=== PATIENT | male | born 1975 | race Two or more races ===

== ENCOUNTER 2018-11-29 11:22 | Emergency (ER) | payer SELFPAY ==
[2018-11-29 11:49] LABS: BASO % 2.5 % (0-2.0); EOS % 3.8 % (0-4.5); HEMOGLOBIN 13.8 GM/dL (11.7-16.9); LYMPH % 25.2 % (8-40); MCH 32.2 pg (25.7-33.7); MCHC 34.4 g/dl (32.0-35.9); MEAN CELL VOLUME 93.4 fl (80-96); MEAN PLT VOLUME 7.4 fl (7.5-11.1); MONO % 7.5 % (3.8-10.2); PLATELET COUNT 233 K/MM3 (134-434); RBC 4.28 M/mm3 (4.00-5.60); RDW 14.1 % (11.9-15.9); WHITE BLOOD COUNT 3.3 K/mm3 (4.0-10.0)
[2018-11-29] MEDS ORDERED: SODIUM CHLORIDE 1,000 ML IV STA (11:51)
--- NOTE | 2018-11-29 11:59 | PDOC ---
History of Present Illness <Shreyas Marie - Last Filed: 11/29/18 14:24> - General History Source: Patient, EMS Exam Limitations: No Limitations - History of Present Illness Initial Comments: Pt is a 43 yo M, with PMH of polysubstance abuse and Hep C with known fatty liver/elevated LFTs, who is presenting via EMS from the [facility] detox facility after being found down in the detox area parking lot. Per EMS, pt received naloxone x2 and became more responsive in route. Pt states he was presenting to detox facility, and "used a bag of heroin" while he was waiting to be admitted. Pt wishes to go back to detox after clearance, and has no current complaints. Pt denies any recent fevers/chills, headache, vision changes , chest pain, palpitations, SOB, nausea/vomiting, abdominal pain, urinary symptoms, diarrhea/constipation, or leg swelling. Pt was seen earlier this week at [facility] ED and had RUQ US 2/2 elevated LFTs , which showed fatty liver. Pt has never been hospitalized for withdrawal or seizures in the past. Allergies: PCN (rash/hives) PCP: None Social: Pt drinks 1/5th of vodka per day (last use 6 am today), suboxone daily ( not in a program, last use yesterday); no recent other illicit drug use (other than heroin today), but used IV drugs, cocaine, heroin in the past. Pt denies any recent travel or sick contacts. Surgical: no relevant history. Family: no relevant history. 11/29/18 11:54 11/29/18 11:59 <Marta Dominguez - Last Filed: 11/29/18 15:12> - General Chief Complaint: Overdose Stated Complaint: OVERDOSE Time Seen by Provider: 11/29/18 11:30 Past History <Shreyas Marie - Last Filed: 11/29/18 14:24> - Travel Traveled outside of the country in the last 30 days: No Close contact w/someone who was outside of country & ill: No - Past Medical History Anemia: No Asthma: No Cardiac Disorders: No CVA: No COPD: No Diabetes: No GI Disorders: No Disorders: No HTN: No Hypercholesterolemia: No Kidney Stones: No Seizures: No Thyroid Disease: No - Surgical History Abdominal Surgery: No Appendectomy: No Cardiac Surgery: No Cholecystectomy: No Lung Surgery: No Neurologic Surgery: No Orthopedic Surgery: No - Reproductive History Testicular Surgery: No - Psycho Social/Smoking Cessation Hx Smoking History: Never smoked Have you smoked in the past 12 months: No Number of Cigarettes Smoked Daily: 20 Information on smoking cessation initiated: No 'Breaking Loose' booklet given: 07/22/15 Hx Alcohol Use: Yes Drug/Substance Use Hx: Yes Substance Use Type: Alcohol, Heroin Hx Substance Use Treatment: Yes ([facility]) <Marta Dominguez - Last Filed: 11/29/18 15:12> - Past Medical History Allergies/Adverse Reactions: Allergies Allergy/AdvReac Type Severity Reaction Status Date / Time Penicillins Allergy Hives Verified 11/29/18 11:40 Home Medications: Ambulatory Orders hydrOXYzine PAMOATE [Vistaril -] 25 mg PO TID PRN 07/22/15 Review of Systems - Review of Systems Able to Perform ROS?: Yes Is the patient limited French proficient: No Constitutional: Yes: Weight Stable. No: Chills, Fever, Loss of Appetite, Malaise, Weakness HEENTM: No: Recent change in vision, Nose Congestion, Throat Pain, Throat Swelling, Difficulty Swallowing Respiratory: No: Cough, Orthopnea, Shortness of Breath Cardiac (ROS): Yes: See HPI, Syncope. No: Chest Pain, Edema, Irregular Heart Rate, Lightheadedness, Palpitations, Chest Tightness ABD/GI: No: Constipated, Diarrhea, Nausea, Poor Appetite, Poor Fluid Intake, Vomiting : No: Burning, Dysuria, Frequency, Hematuria, Pain, Urgency Musculoskeletal: No: Back Pain, Muscle Pain, Muscle Weakness Integumentary: No: Rash Neurological: Yes: Other (LOC 2/2 overdose). No: Headache, Numbness, Weakness, Unsteady Gait, Dizziness Psychiatric: No: Sleep Pattern Change, Change in Appetite Endocrine: No: Increased Urine, Change in Weight Hematologic/Lymphatic: No: Anemia, Blood Clots, Easy Bleeding, Easy Bruising All Other Systems: Reviewed and Negative <Marta Dominguez - Last Filed: 11/29/18 15:12> *Physical Exam - Vital Signs Last Vital Signs Temp Pulse Resp BP Pulse Ox 97.8 F 78 18 115/78 96 11/29/18 13:33 11/29/18 13:33 11/29/18 13:33 11/29/18 13:33 11/29/18 13:33 <Shreyas Marie - Last Filed: 11/29/18 14:24> - Vital Signs Last Vital Signs Temp Pulse Resp BP Pulse Ox 97.6 F 72 18 129/82 100 11/29/18 11:36 11/29/18 11:36 11/29/18 11:36 11/29/18 11:36 11/29/18 11:36 - Physical Exam Comments: Vitals stable, pt afebrile. Pt in NAD, lying on bed comfortably. Normal body habitus. Pt alert and oriented x3. Answering questions appropriately in full sentences. live in housekeeper nanny generally intact, muscular strength and sensation intact. No midline spinal tenderness, step-offs, or crepitus. Head normocephalic, atraumatic. Eyes PERRLA, 3 mm. EOMI. Oropharynx without erythema or exudates, no LAD b/l. No nasal congestion, hearing intact. Clear heart sounds, S1/S2, no JVD, b/l pedal edema, or heart murmur. Clear lung sounds, no respiratory distress, wheezes, crackles, or accessory muscle use. No abdominal or CVA tenderness to palpation, no rebound, no guarding. Abdomen soft, non-distended, and with normoactive bowel sounds. Skin without jaundice or rash. Extensive tattoos on arms and back. 11/29/18 12:01 <Marta Dominguez - Last Filed: 11/29/18 15:12> ED Treatment Course - LABORATORY CBC & Chemistry Diagram: 11/29/18 11:40 11/29/18 11:40 - ADDITIONAL ORDERS Additional order review: Laboratory Results 11/29/18 11/29/18 11/29/18 12:09 11:52 11:52 Sodium Potassium Chloride Carbon Dioxide Anion Gap BUN Creatinine Est GFR (CKD-EPI)AfAm Est GFR (CKD-EPI)NonAf POC Glucometer 92 Random Glucose Calcium Total Bilirubin AST ALT Alkaline Phosphatase Creatine Kinase Creatine Kinase Index CK-MB (CK-2) Troponin I Total Protein Albumin Urine Color Yellow Urine Appearance Clear Urine pH 6.0 Ur Specific [place] 1.007 L Urine Protein 1+ H Urine Glucose (UA) Negative Urine Ketones Negative Urine Blood Negative Urine Nitrite Negative Urine Bilirubin Negative Urine Urobilinogen 0.2 Ur Leukocyte Esterase Negative Opiates Screen Negative Methadone Screen Negative Barbiturate Screen Negative Phencyclidine Screen Negative Ur Amphetamines Screen Negative MDMA (Ecstasy) Screen Negative Benzodiazepines Screen Negative Cocaine Screen Negative U Marijuana (THC) Screen Negative 11/29/18 11/29/18 11:40 11:40 Sodium 141 Potassium 3.6 Chloride 105 Carbon Dioxide 25 Anion Gap 12 BUN 12.9 Creatinine 0.9 Est GFR (CKD-EPI)AfAm 122.52 Est GFR (CKD-EPI)NonAf 105.71 POC Glucometer Random Glucose 95 Calcium 8.7 Total Bilirubin 0.9 AST 207 H ALT 443 H Alkaline Phosphatase 111 Creatine Kinase 573 H Creatine Kinase Index 0.8 CK-MB (CK-2) 4.6 H Troponin I < 0.02 Total Protein 6.9 Albumin 3.9 Urine Color Urine Appearance Urine pH Ur Specific [place] Urine Protein Urine Glucose (UA) Urine Ketones Urine Blood Urine Nitrite Urine Bilirubin Urine Urobilinogen Ur Leukocyte Esterase Opiates Screen Methadone Screen Barbiturate Screen Phencyclidine Screen Ur Amphetamines Screen MDMA (Ecstasy) Screen Benzodiazepines Screen Cocaine Screen U Marijuana (THC) Screen 11/29/18 11/29/18 12:09 11:40 RBC 4.28 MCV 93.4 MCHC 34.4 RDW 14.1 MPV 7.4 L D Neutrophils % 61.0 Lymphocytes % 25.2 Monocytes % 7.5 Eosinophils % 3.8 Basophils % 2.5 H POC Glucometer 92 - Medications Given in the ED: ED Medications Discontinued Medications Generic Name Dose Route Start Last Admin Trade Name Freq PRN Reason Stop Dose Admin Sodium Chloride 1,000 mls @ 1,000 mls/hr 11/29/18 11:51 11/29/18 12:05 Normal Saline - IV 11/29/18 12:50 1,000 mls/hr ASDIR STA Administration <Shreyas Marie - Last Filed: 11/29/18 14:24> - LABORATORY CBC & Chemistry Diagram: 11/29/18 11:40 11/29/18 11:40 - ADDITIONAL ORDERS Additional order review: 11/29/18 11:40 RBC 4.28 MCV 93.4 MCHC 34.4 RDW 14.1 MPV 7.4 L D Neutrophils % 61.0 Lymphocytes % 25.2 Monocytes % 7.5 Eosinophils % 3.8 Basophils % 2.5 H <Marta Dominguez - Last Filed: 11/29/18 15:12> Medical Decision Making - Medical Decision Making Pt was seen at bedside, also will be seen by attending Dr. Marie. Pt presenting via EMS after overdose from heroin in detox center parking lot. Pt now mentating at baseline, answering appropriately in full sentences, no signs of respiratory depression or distress. Ordered pre-admission labs, urine toxicology screen. Provided 1 L IV NS for improvement of hydration. Will continue to reassess pt and monitor for symptomatic improvement and further need for naloxone. 11/29/18 12:03 CBC: WBC 3.1 CMP: elevated LFTs (known to pt) Trop <.02, with elevated CKMB -- provided IVF Urine tox screen negative (suboxone and heroin often does not test positive). Called [facility] for admission status. 11/29/18 13:31 UA negative for infection. Pending [facility] dispo. 11/29/18 13:48 Pt discharged with [facility] f/u, bed available. Strict return precautions provided with pt understanding. 11/29/18 15:12 <Marta Dominguez - Last Filed: 11/29/18 15:12> Discharge - Discharge Information Problems reviewed: Yes - Admission No <Shreyas Marie - Last Filed: 11/29/18 14:24> - Discharge Information Problems reviewed: Yes - Admission No <Marta Dominguez - Last Filed: 11/29/18 15:12> - Discharge Information Clinical Impression/Diagnosis: Alcohol dependence with uncomplicated withdrawal Condition: Improved Disposition: HOME - Patient Discharge Instructions Patient Printed Discharge Instructions: Drug and Alcohol Withdrawal Additional Instructions: Proceed directly to [facility] for withdrawal
[2018-11-29 12:02] VITALS: BMI 33.6
[2018-11-29 12:27] LABS: ALBUMIN 3.9 g/dl (3.4-5.0); BILIRUBIN,TOTAL 0.9 mg/dL (0.2-1); BLOOD UREA NITROGEN 12.9 mg/dL (7-18); CALCIUM 8.7 mg/dL (8.5-10.1); CREATININE 0.9 mg/dL (0.55-1.3); POTASSIUM 3.6 mmol/L (3.5-5.1); TOT PROT 6.9 g/dl (6.4-8.2)
[2018-11-29 13:23] LABS: COCAINE, UR NEGATIVE ng/ml (CUTOFF=300); METHADONE, UR NEGATIVE ng/ml (CUTOFF=300); OPIATES, URI NEGATIVE ng/ml (CUTOFF=300); PHENCYCLIDINE,URINE NEGATIVE ng/ml (CUTOFF=25); URINE AMPHETAMINES NEGATIVE ng/ml (CUTOFF=500); URINE BARBITURATES NEGATIVE ng/ml (CUTOFF=200); URINE BENZODIAZEPINES NEGATIVE ng/ml (CUTOFF=200)
[2018-11-29 13:33] LABS: URINE APPEARANCE CLEAR; URINE BILIRUBIN NEGATIVE (NEGATIVE); URINE COLOR YELLOW; URINE GLUCOSE (UA) NEGATIVE (NEGATIVE); URINE KETONE NEGATIVE (NEGATIVE)
[2018-11-29 13:34] VITALS: BP 115/78; PULSE 78; TEMP 97.8
[2018-11-29 13:34] LABS: URINE LEUK ESTERASE NEGATIVE (NEGATIVE); URINE NITRITE NEGATIVE (NEGATIVE); URINE PROTEIN 1+ (NEGATIVE); URINE UROBILINOGEN 0.2 mg/dL (0.2-1.0)
--- NOTE | 2018-11-29 14:25 | PDOC ---
Attending Attestation - Resident Resident Name: Marta Dominguez - ED Attending Attestation I have performed the following: I have examined & evaluated the patient, The case was reviewed & discussed with the resident, I agree w/resident's findings & plan, Exceptions are as noted - HPI HPI: 11/29/18 18:38 43 years old with heroin overdose given Narcan by EMS now with stable vital signs - Physicial Exam PE: 11/29/18 18:38 Vitals: Triage Vital signs reviewed General Appearance: no acute distress, well nourished well developed, Head: Atraumatic, Eyes: Pupils equal reactive round, extraocular movement intact Cardiac: Regular rate and rhythym, no murmurs, no rubs, no gallops, Lungs: Clear to auscultation bilateral, good air movement bilaterally, Abdomen: Soft, non distended, normal bowel sounds, non tender to palpation Extremities: Full range of motion to all extremities, no cyanosis, clubbing, or edema Skin: Warm and dry, no rashes or lesions, no rash, no petechiae Neuro: AOX3; Cranial Nerves 2-12 grossly intact, Strength intact to all extremities, Sensation intact to all extremities,gait normal Psych: normal mood, normal affect - Medical Decision Making 11/29/18 18:40 43 years old was attempting to check into detox for alcohol detox was presented with the inability to buy heroin and bought a bag sniffed it subsequently was found unresponsive by EMS on the street Narcan was given in the field good response patient was observed in the emergency department for 3 hours. Patient very remorseful. CIWA score of 10. Case discussed with [facility] care will discharge to [facility] for detox and further management. Medically clear for discharge.
== END 2018-11-29 14:47 | disposition home or self-care (01) ==
LOC: JER 11:22
PROC: 3E0337Z Introduction of Electrolytic and Water Balance Substance into Peripheral Vein, Percutaneous Approach (ICD-10-PCS; principal; 2018-11-29)
DX: T40.1X1A Poisoning by heroin, accidental (unintentional), initial encounter (principal); F10.230 Alcohol dependence with withdrawal, uncomplicated; F11.20 Opioid dependence, uncomplicated; R94.5 Abnormal results of liver function studies; K76.0 Fatty (change of) liver, not elsewhere classified; Z88.0 Allergy status to penicillin; Y92.481 Parking lot as the place of occurrence of the external cause
CPT/HCPCS: 36415; 71045-TC-FY; 80053; 80307; 81003; 82550; 82553; 82962; 84484; 85025; 99285-25; J7030

== ENCOUNTER 2018-11-29 16:30 | Inpatient (IN) | payer SELFPAY ==
--- NOTE | 2018-11-29 11:31 | HP ---
Screened but not Admitted - Documentation of Visit Screened but not Admitted: Yes Level of Care Recommended at this Time: ER Evaluation/Care Additional Information/Explanation: responded to rapid respond in parking lot in [facility],patient was found. slumped over the scaffolding,patientis has. labour breathing,unresponsive,pupil costricted. patient was laid on the ground, activated call to 911 immediately. intranasal narcan 4 mg given 10.47 immediately. ambule bag with oxygen apply immediaely by medical provider. narcan 0.4 mg im given at 10.49. narcan 0.4 mg given at 10.50. narcan intranasal 4 mgs given at 10.51. patient responded ,opening the eys,spontanous breathing. bp 160/99,p90,r20,. oxygen sat 90%. medics arrival at 10.54. patient was transported to [facility] by medics. reported given to Dr.Anthony Patterson at [facility]
[2018-11-29 16:55] VITALS: BMI 34.0
--- NOTE | 2018-11-29 18:40 | HP ---
COWS - Scale Resting Pulse: 1= [place] 81-100 Sweatin=Flushed/Facial Moisture Restless Observation: 1= Difficult to Sit Still Pupil Size: 1= Pupils >than Normal (Pupils = 3 mm) Bone or Joint Aches: 1= Mild Discomfort (r/t withdrawal) Runny Nose/ Eye Tearin= Nasal Congestion GI Upset > 30mins: 0= None Tremor Observation: 2= Slight Tremor Visible Yawning Observation: 0= None Anxiety or Irritability: 1=Feels Anxious/Irritable Goose Flesh Skin: 0=Smooth Skin COWS Score: 10 CIWA Score Nausea/Vomitin-No Nausea/No Vomiting (TATO: 0.055) Muscle Tremors: 4-Moderate,w/Arms Extend Anxiety: 1-Mildly Anxious Agitation: 3 Paroxysmal Sweats: 3 (Increased facial mositure) Orientation: 0-Oriented Tacttile Disturbances: 0-None Auditory Disturbances: 0-None Visual Disturbances: 0-None Headache: 0-None Present CIWA-Ar Total Score: 11 - Admission Criteria OAS Guidelines: Admission for Medically Managed Detox: Requires at least one of the followin. CIWA greater than 12 2. Seizures within the past 24 hours 3. Delirium tremens within the past 24 hours 4. Hallucinations within the past 24 hours 5. Acute intervention needed for co occurring medical disorder 6. Acute intervention needed for co occurring psychiatric disorder 7. Severe withdrawal that cannot be handled at a lower level of care (continued vomiting, continued diarrhea, abnormal vital signs) requiring intravenous medication and/or fluids 8. Patient presents the following: Acute intervention needed for co-occurring med or psych disorder (Patient treated in ED for overdose earlier today) Admission Criteria Met: Admission criteria met Admission ROS [facility] Chief Complaint: Here for alcohol and suboxone taper. Allergies/Adverse Reactions: Allergies Allergy/AdvReac Type Severity Reaction Status Date / Time Penicillins Allergy Hives Verified 11/29/18 16:49 History of Present Illness: 43 yo patient seen earlier today at [facility] w/ symptoms of an overdose and was administered several doses of Narcan before reversal. Patient now returns from [facility] ED after being seen post overdose. Patient states alcohol has been his primary problem and was coming to [facility] for detox. Denies prior hx overdose or seizures. Hx: blackouts - last about 1-2 years ago. Utox: FEN/BZO/BUP TATO: 0.109 earlier. Now = 0.055 Alcohol use began at age 16. Currently drinks about 1/5 liquor/day x last 3-4 months. Illicit Suboxone use began about 5 years ago. Current use 4-8 mg daily x 2 months. Heroin use began at age 21. States last used heroin 2 years ago except for the one bag, which he thought was heroin, just outside [facility] parking lot earlier today. Nicotine use began at age 20. Currently smokes 1/2 to 1 PPD. PMHx: Denies significant hx. MHHx: Some anxiety, insomnia. Denies thoughts of harming self or others. Does not see a MH Provider SHx; Domiciles. Employed. Search Terms: Chris Wu, 1975 Search Date: 11/29/2018 07:08:18 PM The Drug Utilization Report below displays all of the controlled substance prescriptions, if any, that your patient has filled in the last twelve months. The information displayed on this report is compiled from pharmacy submissions to the Department, and accurately reflects the information as submitted by the pharmacies. This report was requested by: Alma Delia Grady | Reference #: [id number] There are no results for the search terms that you entered. Search Terms: Chris Wu, 1975 Search Date: 11/29/2018 07:08:47 PM States Searched: [place], [place], [place], [place], [place], [place], [place], [place] The Drug Utilization Report below displays the controlled substance prescriptions, if any, that were dispensed in the indicated state(s). The information displayed on this report is compiled from requests submitted to other states' PMPs, and accurately reflects the information as returned by them. Blank [place] indicate data not provided by other state. This report was requested by: Alma Delia Grady | Reference #: [id number] There are no results for the search terms that you entered. [facility] HPI, PE, and labs on 11/29/18, reviewed and agree w/ assessment/ findings, as shown below: History Source: [facility] History of Present Illness Initial Comments: Pt is a 43 yo M, with PMH of polysubstance abuse and Hep C with known fatty liver/elevated LFTs, who is presenting via EMS from the [facility] detox facility after being found down in the detox area parking lot. Per EMS, pt received naloxone x2 and became more responsive in route. Pt states he was presenting to detox facility, and "used a bag of heroin" while he was waiting to be admitted. Pt wishes to go back to detox after clearance, and has no current complaints. Pt denies any recent fevers/chills, headache, vision changes , chest pain, palpitations, SOB, nausea/vomiting, abdominal pain, urinary symptoms, diarrhea/constipation, or leg swelling. Pt was seen earlier this week at [facility] ED and had RUQ US 2/2 elevated LFTs , which showed fatty liver. Pt has never been hospitalized for withdrawal or seizures in the past. Allergies: PCN (rash/hives) PCP: None Social: Pt drinks 1/5th of vodka per day (last use 6 am today), suboxone daily ( not in a program, last use yesterday); no recent other illicit drug use (other than heroin today), but used IV drugs, cocaine, heroin in the past. Pt denies any recent travel or sick contacts. Surgical: no relevant history. Family: no relevant history. - Review of Systems Able to Perform ROS?: Yes Is the patient limited French proficient: No Constitutional: Yes: Weight Stable. No: Chills, Fever, Loss of Appetite, Malaise, Weakness HEENTM: No: Recent change in vision, Nose Congestion, Throat Pain, Throat Swelling, Difficulty Swallowing Respiratory: No: Cough, Orthopnea, Shortness of Breath Cardiac (ROS): Yes: See HPI, Syncope. No: Chest Pain, Edema, Irregular Heart Rate, Lightheadedness, Palpitations, Chest Tightness ABD/GI: No: Constipated, Diarrhea, Nausea, Poor Appetite, Poor Fluid Intake, Vomiting : No: Burning, Dysuria, Frequency, Hematuria, Pain, Urgency Musculoskeletal: No: Back Pain, Muscle Pain, Muscle Weakness Integumentary: No: Rash Neurological: Yes: Other (LOC 2/2 overdose). No: Headache, Numbness, Weakness, Unsteady Gait, Dizziness Psychiatric: No: Sleep Pattern Change, Change in Appetite Endocrine: No: Increased Urine, Change in Weight Hematologic/Lymphatic: No: Anemia, Blood Clots, Easy Bleeding, Easy Bruising All Other Systems: Reviewed and Negative <Marta Dominguez - Last Filed: 11/29/18 15:12> Physical Exam Comments: Vitals stable, pt afebrile. Pt in NAD, lying on bed comfortably. Normal body habitus. Pt alert and oriented x3. Answering questions appropriately in full sentences. horse trainer generally intact, muscular strength and sensation intact. No midline spinal tenderness, step-offs, or crepitus. Head normocephalic, atraumatic. Eyes PERRLA, 3 mm. EOMI. Oropharynx without erythema or exudates, no LAD b/l. No nasal congestion, hearing intact. Clear heart sounds, S1/S2, no JVD, b/l pedal edema, or heart murmur. Clear lung sounds, no respiratory distress, wheezes, crackles, or accessory muscle use. No abdominal or CVA tenderness to palpation, no rebound, no guarding. Abdomen soft, non-distended, and with normoactive bowel sounds. Skin without jaundice or rash. Extensive tattoos on arms and back. 11/29/18 12:01 <Marta Dominguez - Last Filed: 11/29/18 15:12> Exam Limitations: No Limitations - Ebola screening Have you traveled outside of the country in the last 21 days: No Have you had contact with anyone from an Ebola affected area: No Have you been sick,other than usual withdrawal symptoms: Yes (Overdose today, otherwise no. ) Do you have a fever: No - Review of Systems Constitutional: Diaphoresis, Changes in sleep (Difficulty staying asleep) EENT: reports: See HPI, Nose Congestion Respiratory: reports: No Symptoms reported Cardiac: reports: No Symptoms Reported, See HPI GI: reports: See HPI : reports: See HPI Musculoskeletal: reports: See HPI Integumentary: reports: See HPI Neuro: reports: No Symptoms reported Endocrine: reports: See HPI Hematology: reports: See HPI Psychiatric: reports: Orientated x3, Anxious Patient History - Patient Medical History Hx Anemia: No Hx Asthma: No Hx Chronic Obstructive Pulmonary Disease (COPD): No Hx Cardiac Disorders: No Hx Hypertension: No Hx Hypercholesterolemia: No HX Cerebrovascular Accident: No Hx Seizures: No Hx Diabetes: No Hx Gastrointestinal Disorders: No Hx Genitourinary Disorders: No Hx Sexually Transmitted Disorders: No Hx Renal Disease (ESRD): No Hx Thyroid Disease: No Hx Human Immunodeficiency Virus (HIV): No (NEGATIVE HX) Hx Hepatitis C: Yes (since 2003-TREATED 2005-UNDETECTABLE) Hx Depression: Yes (AND ANXIETY DISORDER;NOT CURRENTLY ON MED SINC 8 MONTHS ) Hx Suicide Attempt: No (DENIES) Hx Schizophrenia: No - Patient Surgical History Past Surgical History: No Hx Neurologic Surgery: No Hx Cataract Extraction: No Hx Cardiac Surgery: No Hx Lung Surgery: No Hx Breast Surgery: No Hx Breast Biopsy: No Hx Abdominal Surgery: No Hx Appendectomy: No Hx Cholecystectomy: No Hx Genitourinary Surgery: No Hx Section: No Hx Orthopedic Surgery: No - PPD History Previous Implant?: Yes (States 2018) Documented Results: Negative w/proof Implanted On Prior [facility] Admission?: Yes Date: 07/24/15 PPD to be Administered?: Yes - Smoking Cessation Smoking history: Current every day smoker Have you smoked in the past 12 months: Yes Aproximately how many cigarettes per day: 20 Hx Chewing Tobacco Use: No Initiated information on smoking cessation: Yes 'Breaking Loose' booklet given: 11/29/18 - Substance & Tx. History Hx Alcohol Use: Yes Hx Substance Use: Yes Substance Use Type: Alcohol, Cocaine, Heroin, Opiates (Suboxone) Hx Substance Use Treatment: Yes (detox, rehab, (no Suboxone or MMTP programs)) - Substances abused Alcohol Substance route: Oral Frequency: Daily Amount used: 1/5 th of vodka Age of first use: 16 Date of last use: 11/29/18 Buprenorphine Substance route: Oral Frequency: Daily Amount used: 4-8mg/day Age of first use: 38 Date of last use: 11/28/18 Admission Physical Exam BHS - Vital Signs Vital Signs: Vital Signs - 24 hr 11/29/18 16:52 Temperature 97.6 F Pulse Rate 86 Respiratory 16 Rate Blood Pressure 160/97 - Physical General Appearance: Yes: Nourished, Mild Distress, Tremorous, Sweating, Anxious HEENTM: Yes: Normocephalic, Normal Voice, MARÍA ELENA (Pupils = 3 mm), Pharynx Normal Respiratory: Yes: Lungs Clear (Pulse Ox = 96 %), Normal Breath Sounds, No Respiratory Distress Cardiology: Yes: Regular Rhythm, Regular Rate, S1, S2 - Diagnostic (1) Opioid dependence with withdrawal Current Visit: Yes Status: Acute (2) History of drug overdose Current Visit: Yes Status: Acute Comment: 11/29/18 (3) Alcohol dependence with uncomplicated withdrawal Current Visit: Yes Status: Acute (4) Nicotine dependence Current Visit: Yes Status: Chronic Qualifiers: Nicotine product type: cigarettes Substance use status: uncomplicated Qualified Code(s): F17.210 - Nicotine dependence, cigarettes, uncomplicated (5) Obesity (BMI 30-39.9) Current Visit: Yes Status: Chronic Cleared for Admission S - Detox or Rehab [facility] Level of Care: Medically Managed Detox Regimen/Protocol: Librium, Suboxone Claeared for Rehab Admission: No Breathalyzer - Breathalyzer Breathalyzer: 0.109 Urine Drug Screen - Test Device Lot number: [id number] Expiration date: 08/02/20 - Control Is test valid?: Yes - Results Drug screen NEGATIVE: No Urine drug screen results: FEN-Fentanyl, BZO-Benzodiazepines, BUP-Suboxone Inpatient Rehab Admission - Rehab Decision to Admit Inpatient rehab admission?: No
[2018-11-29] MEDS ORDERED: chlordiazePOXIDE HCL 25 MG CAPSULE PO ONE (19:27)
[2018-11-29] MEDS ORDERED: MAGNESIUM CITRATE 300 ML BOTTLE PO PRN (19:27)
[2018-11-29] MEDS ORDERED: MAG HYDROX/AL HYDROX/SIMETH 30 ML UNIT-DOSE CUP PO PRN (19:27)
[2018-11-29] MEDS ORDERED: chlordiazePOXIDE HCL 25 MG CAPSULE PO PRN (19:27)
[2018-11-29] MEDS ORDERED: MENTHOL/PHENOL 1 EACH UD MM PRN (19:27)
[2018-11-29] MEDS ORDERED: ACETAMINOPHEN 325 MG TABLET (FP) PO PRN ×2 (19:27)
[2018-11-29] MEDS ORDERED: MAGNESIUM HYDROX 2400MG/30ML ORAL SUSPENSION 30 ML CUP PO PRN (19:27)
[2018-11-29] MEDS ORDERED: BISMUTH SUBSALICYLATE 524 MG/30 ML UD PO PRN (19:27)
[2018-11-29] MEDS ORDERED: METHOCARBAMOL 500 MG TABLET PO PRN (19:27)
[2018-11-29] MEDS: chlordiazePOXIDE HCL 25 MG CAPSULE PO SCH (22:05)
[2018-11-29] MEDS: MELATONIN 5 MG TABLETS PO PRN (22:06)
[2018-11-29] MEDS: THIAMINE HCL 100 MG TABLET (FP) PO SCH (22:06)
[2018-11-29] MEDS: BUPRENORPHINE/NALOXONE 4 MG/1 MG FILM PACKET SL SCH (22:06)
[2018-11-30] MEDS: chlordiazePOXIDE HCL 25 MG CAPSULE PO SCH ×4 (05:26→22:06)
[2018-11-30] MEDS: NICOTINE 21 MG/24 HOURS TOPICAL PATCH TD SCH (10:20)
[2018-11-30] MEDS: PRENATAL VITAMINS W/ FOLIC ACID TABLET (FP) PO SCH (10:20)
[2018-11-30] MEDS: BUPRENORPHINE/NALOXONE 4 MG/1 MG FILM PACKET SL SCH ×2 (10:20→21:45)
--- NOTE | 2018-11-30 10:39 | PN ---
S CIWA - CIWA Score Nausea/Vomitin-No Nausea/No Vomiting Muscle Tremors: 2 Anxiety: 3 Agitation: 0-Normal Activity Paroxysmal Sweats: 3 Orientation: 0-Oriented Tacttile Disturbances: 0-None Auditory Disturbances: 0-None Visual Disturbances: 0-None Headache: 2-Mild CIWA-Ar Total Score: 10 BHS COWS - Scale Resting Pulse: 0= [place] 80 or Below Sweatin= Chills/Flushing Restless Observation: 1= Difficult to Sit Still Pupil Size: 0= Normal to Room Light Bone or Joint Aches: 2= Severe Diffuse Aches Runny Nose/ Eye Tearin= None GI Upset > 30mins: 0= None Tremor Observation of Outstretched Hands: 2= Slight Tremor Visible Yawning Observation: 1= 1-2x During Session Anxiety or Irritability: 2=Irritable/Anxious Goose Flesh Skin: 0=Smooth Skin COWS Score: 9 BHS Progress Note (SOAP) Subjective: c/o anxiety, irritability, sweats, and headache. Objective: 11/30/18 10:38 Vital Signs 11/30/18 11/30/18 11/30/18 03:30 07:03 09:41 Temperature 97.3 F L 97.9 F Pulse Rate 60 69 Respiratory 18 18 18 Rate Blood Pressure 113/77 127/82 Assessment: 11/30/18 10:38 AOX3, in no acute respiratory distress. Full ROM, ambulating in the unit. Withdrawal symptoms. Plan: continue detox.
[2018-11-30] MEDS: NICOTINE POLACRILEX 2 MG GUM BUC PRN (12:19)
[2018-11-30] MEDS: IBUPROFEN 400 MG TABLET (FP) PO PRN (17:02)
[2018-11-30] MEDS: THIAMINE HCL 100 MG TABLET (FP) PO SCH (21:45)
[2018-11-30] MEDS: MELATONIN 5 MG TABLETS PO PRN (21:45)
[2018-12-01] MEDS: chlordiazePOXIDE HCL 25 MG CAPSULE PO SCH ×4 (06:10→22:10)
[2018-12-01] MEDS: PRENATAL VITAMINS W/ FOLIC ACID TABLET (FP) PO SCH (10:16)
[2018-12-01] MEDS: NICOTINE 21 MG/24 HOURS TOPICAL PATCH TD SCH (10:16)
[2018-12-01] MEDS: BUPRENORPHINE/NALOXONE 4 MG/1 MG FILM PACKET SL SCH (10:16)
--- NOTE | 2018-12-01 16:52 | PN ---
[facility] CIWA - CIWA Score Nausea/Vomitin-No Nausea/No Vomiting Muscle Tremors: 3 Anxiety: 4-Mod. Anxious/Guarded Agitation: 3 Paroxysmal Sweats: 3 Orientation: 0-Oriented Tacttile Disturbances: 0-None Auditory Disturbances: 0-None Visual Disturbances: 0-None Headache: 0-None Present CIWA-Ar Total Score: 13 BHS COWS - Scale Resting Pulse: 1= [place] 81-100 Sweatin= Chills/Flushing Restless Observation: 1= Difficult to Sit Still Pupil Size: 0= Normal to Room Light Bone or Joint Aches: 1= Mild Discomfort Runny Nose/ Eye Tearin= Runny Nose/Eyes GI Upset > 30mins: 2= Nausea/Diarrhea Tremor Observation of Outstretched Hands: 2= Slight Tremor Visible Yawning Observation: 0= None Anxiety or Irritability: 2=Irritable/Anxious Goose Flesh Skin: 0=Smooth Skin COWS Score: 12 BHS Progress Note (SOAP) Subjective: Interrupted sleep, anxious Objective: 12/01/18 16:49 Last Vital Signs Temp Pulse Resp BP Pulse Ox 97.9 F 82 18 122/74 12/01/18 10:01 12/01/18 10:01 12/01/18 10:01 12/01/18 10:01 Laboratory Tests 11/30/18 07:40 RPR Titer Nonreactive Labs results from 11/29/2018 reviewed: AST 207, ALT 443, CK 573, UA: 1+ protein Assessment: 12/01/18 16:53 Withdrawal sxs Noted with elevated LFTs, mild rhabdomyolysis and proteinuria Plan: Continue detox Encouraged PO water intake Elevated LFTs: repeat hepatic function panel, send Hepatitis A, B, C panel Mild rhabdomyolysis: encouraged to drink more water, repeat CK Proteinuria: repeat UA
[2018-12-01] MEDS: MELATONIN 5 MG TABLETS PO PRN (22:10)
[2018-12-01] MEDS: THIAMINE HCL 100 MG TABLET (FP) PO SCH (22:10)
[2018-12-01] MEDS: BUPRENORPHINE/NALOXONE 2 MG/0.5 MG FILM PACKET SL SCH (22:10)
[2018-12-02] MEDS ORDERED: chlordiazePOXIDE HCL 10 MG CAPSULE PO PRN
[2018-12-02] MEDS: chlordiazePOXIDE HCL 10 MG CAPSULE PO SCH ×4 (06:20→22:01)
[2018-12-02] MEDS: NICOTINE POLACRILEX 2 MG GUM BUC PRN ×4 (10:08→22:01)
[2018-12-02] MEDS: NICOTINE 21 MG/24 HOURS TOPICAL PATCH TD SCH (10:08)
[2018-12-02] MEDS: PRENATAL VITAMINS W/ FOLIC ACID TABLET (FP) PO SCH (10:08)
[2018-12-02] MEDS: BUPRENORPHINE/NALOXONE 2 MG/0.5 MG FILM PACKET SL SCH ×2 (10:09→22:01)
[2018-12-02] MEDS: IBUPROFEN 400 MG TABLET (FP) PO PRN ×2 (10:10→17:36)
--- NOTE | 2018-12-02 10:17 | PN ---
[facility] CIWA - CIWA Score Nausea/Vomitin-Mild Nausea/No Vomiting Muscle Tremors: 1-None Visible, but [place] Anxiety: 2 Agitation: 2 Paroxysmal Sweats: No Perspiration Orientation: 0-Oriented Tacttile Disturbances: 0-None Auditory Disturbances: 0-None Visual Disturbances: 0-None Headache: 1-Very Mild CIWA-Ar Total Score: 7 S Progress Note (SOAP) Subjective: alert,irritable,anxious,interrupted sleep Objective: 12/02/18 10:15 Vital Signs Temperature 96.6 F L 12/02/18 09:04 Pulse Rate 79 12/02/18 09:04 Respiratory Rate 20 12/02/18 09:04 Blood Pressure 121/69 12/02/18 09:04 O2 Sat by Pulse Oximetry (%) 12/02/18 10:16 withdrawal symptom Assessment: 12/02/18 10:16 withdrawal symptom but less Plan: continue detox librium regimen,discharge in am
[2018-12-02 12:25] LABS: BILIRUBIN,DIRECT 0.4 mg/dL (0.0-0.2); TOT PROT 7.1 g/dl (6.4-8.2)
[2018-12-02 13:02] LABS: PH,URINE 5.5 (5.0-8.0); URINE APPEARANCE CLEAR; URINE BILIRUBIN NEGATIVE (NEGATIVE); URINE COLOR YELLOW; URINE GLUCOSE (UA) NEGATIVE (NEGATIVE); URINE KETONE NEGATIVE (NEGATIVE); URINE LEUK ESTERASE NEGATIVE (NEGATIVE); URINE NITRITE NEGATIVE (NEGATIVE); URINE PROTEIN NEGATIVE (NEGATIVE); URINE UROBILINOGEN 0.2 mg/dL (0.2-1.0)
[2018-12-02] MEDS: THIAMINE HCL 100 MG TABLET (FP) PO SCH (22:01)
[2018-12-03] MEDS ORDERED: chlordiazePOXIDE HCL 10 MG CAPSULE PO SCH (05:00)
[2018-12-03] MEDS: NICOTINE POLACRILEX 2 MG GUM BUC PRN ×2 (06:20→09:14)
[2018-12-03] MEDS: PRENATAL VITAMINS W/ FOLIC ACID TABLET (FP) PO SCH (09:13)
[2018-12-03] MEDS: NICOTINE 21 MG/24 HOURS TOPICAL PATCH TD SCH (09:14)
[2018-12-03] MEDS: BUPRENORPHINE/NALOXONE 2 MG/0.5 MG FILM PACKET SL SCH (09:14)
[2018-12-03 09:25] VITALS: BP 105/69; PULSE 64; TEMP 97.7
--- NOTE | 2018-12-03 09:47 | DS ---
[facility] Detox Discharge Summary Admission Date: 11/29/18 Discharge Date: 12/03/18 - History Present History: Alcohol Dependence, Opioid Dependence - Physical Exam Results Vital Signs: Vital Signs Temperature 97.7 F 12/03/18 09:24 Pulse Rate 64 12/03/18 09:24 Respiratory Rate 16 12/03/18 09:24 Blood Pressure 105/69 12/03/18 09:24 O2 Sat by Pulse Oximetry (%) Pertinent Admission Physical Exam Findings: pt arrived in withdrawals Laboratory Tests 11/30/18 12/02/18 12/02/18 07:40 08:45 09:12 Total Bilirubin 1.0 Direct Bilirubin 0.4 H AST 143 H ALT 323 H Alkaline Phosphatase 114 Creatine Kinase 241 Creatine Kinase Index 0.7 CK-MB (CK-2) 1.7 Total Protein 7.1 Albumin 4.0 Urine Color Yellow Urine Appearance Clear Urine pH 5.5 Ur Specific [place] 1.019 Urine Protein Negative Urine Glucose (UA) Negative Urine Ketones Negative Urine Blood Negative Urine Nitrite Negative Urine Bilirubin Negative Urine Urobilinogen 0.2 Ur Leukocyte Esterase Negative RPR Titer Nonreactive today pt is aaox3 ambulating no acute distress no s/s of withdrawals - Treatment Hospital Course: Detox Protocol Followed, Detoxed Safely, Responded well, Discharged Condition Good, Rehab Referral Accepted Patient has Accepted a Rehab Referral to: pt declined rehab; referral provided - Medication Discharge Medications: Ambulatory Orders Naloxone HCl [Narcan] 4 mg NS 12/03/18 - Diagnosis (1) Alcohol dependence with uncomplicated withdrawal Current Visit: Yes Status: Chronic (2) History of drug overdose Current Visit: Yes Status: Acute (3) Opioid dependence with withdrawal Current Visit: Yes Status: Chronic (4) Nicotine dependence Current Visit: Yes Status: Chronic Qualifiers: Nicotine product type: cigarettes Substance use status: uncomplicated Qualified Code(s): F17.210 - Nicotine dependence, cigarettes, uncomplicated (5) Obesity (BMI 30-39.9) Current Visit: Yes Status: Chronic (6) Substance-induced sleep disorder Current Visit: No Status: Acute - AMA Did Patient Leave Against Medical Advice: No
[2018-12-04] MEDS ORDERED: chlordiazePOXIDE HCL 10 MG CAPSULE PO ONE (05:00)
[2018-12-04] MEDS ORDERED: BUPRENORPHINE/NALOXONE 2 MG/0.5 MG FILM PACKET SL ONE (10:00)
== END 2018-12-03 09:44 | disposition home or self-care (01) | DRG 773 ==
LOC: YASAS 16:30 → Y6N 19:48
PROVIDERS: ADMIT Surgery; ATTEND Surgery
PROC: HZ2ZZZZ Detoxification Services for Substance Abuse Treatment (ICD-10-PCS; principal; 2018-11-29)
DX: F11.23 Opioid dependence with withdrawal (principal); F10.230 Alcohol dependence with withdrawal, uncomplicated; F17.210 Nicotine dependence, cigarettes, uncomplicated; F19.282 Other psychoactive substance dependence with psychoactive substance-induced sleep disorder; R94.5 Abnormal results of liver function studies; E66.9 Obesity, unspecified; Z68.30 Body mass index [BMI] 30.0-30.9, adult; Z88.0 Allergy status to penicillin; Z87.898 Personal history of other specified conditions
CPT/HCPCS: 36415; 80076; 81003; 82550; 82553; 86593; 86803

== ENCOUNTER 2019-03-04 09:24 | Inpatient (IN) | payer OTHER ==
[2019-03-04 09:53] VITALS: BMI 33.4
--- NOTE | 2019-03-04 10:33 | HP ---
COWS - Scale Resting Pulse: 1= [place] 81-100 Sweatin= Chills/Flushing Restless Observation: 1= Difficult to Sit Still Pupil Size: 1= Pupils >than Normal Bone or Joint Aches: 2= Severe Diffuse Aches Runny Nose/ Eye Tearin= Runny Nose/Eyes GI Upset > 30mins: 3= Vomiting/Diarrhea Tremor Observation: 2= Slight Tremor Visible Yawning Observation: 1= 1-2x During Session Anxiety or Irritability: 2=Irritable/Anxious Goose Flesh Skin: 0=Smooth Skin COWS Score: 16 CIWA Score Nausea/Vomitin Muscle Tremors: 3 Anxiety: 3 Agitation: 3 Paroxysmal Sweats: 1-Minimal Palms Moist Orientation: 0-Oriented Tacttile Disturbances: 1-Very Mild Itch/Numbness Auditory Disturbances: 0-None Visual Disturbances: 0-None Headache: 2-Mild CIWA-Ar Total Score: 15 - Admission Criteria OASAS Guidelines: Admission for Medically Managed Detox: Requires at least one of the followin. CIWA greater than 12 2. Seizures within the past 24 hours 3. Delirium tremens within the past 24 hours 4. Hallucinations within the past 24 hours 5. Acute intervention needed for co occurring medical disorder 6. Acute intervention needed for co occurring psychiatric disorder 7. Severe withdrawal that cannot be handled at a lower level of care (continued vomiting, continued diarrhea, abnormal vital signs) requiring intravenous medication and/or fluids 8. Admitting History and Physical - Admission Chief Complaint: i need help to stop using heroin,alcohol History of Present Illness: this 43 years old male with heroin and alcohol dependence,seeking detox, withdrawal symptom, last detox [facility] 11/29/18 to 12/03/18 hepatitis c treated nicotine dependence longest sobriety 1 and half year History Source: Patient Limitations to Obtaining History: No Limitations - Past Medical History Hepatobiliary: Yes: Hepatitis C (treated in 2004) - Smoking History Smoking history: Current every day smoker Have you smoked in the past 12 months: Yes Aproximately how many cigarettes per day: 20 - Alcohol/Substance Use Hx Alcohol Use: Yes History of Substance Use: reports: Heroin - Social History Usual Living Arrangement: Yes: With Spouse ADL: Independent Occupation: printing History of Recent Travel: No Admission ROS BHS - HPI Chief Complaint: i need help to stop using heroin and alcohol Allergies/Adverse Reactions: Allergies Allergy/AdvReac Type Severity Reaction Status Date / Time Penicillins Allergy Hives Verified 03/04/19 09:44 History of Present Illness: this 43 years old male with heroin,alcohol dependence,suboxone abused,seeking detox,withdrawal symptom, last detox [facility] 11/29/18 to 12/03/18 denied seizure denied syncope nicotine dependence 1 pack/day hepatitis c treated in 2004 longest sobriety 1 and half year 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 Exam Limitations: No Limitations - Ebola screening Have you traveled outside of the country in the last 21 days: No Have you had contact with anyone from an Ebola affected area: No Do you have a fever: No - Review of Systems Constitutional: Chills, Loss of Appetite, Malaise, Night Sweats, Changes in sleep, Weakness EENT: reports: Tearing, Nose Congestion Respiratory: reports: No Symptoms reported Cardiac: reports: No Symptoms Reported GI: reports: Nausea, Vomiting, Abdominal cramping : reports: No Symptoms Reported Musculoskeletal: reports: Back Pain, Joint Pain, Muscle Pain, Joint Stiffness Integumentary: reports: Dryness Neuro: reports: Headache, Tremors Endocrine: reports: No Symptoms Reported Hematology: reports: No Symptoms Reported Psychiatric: reports: No Sypmtoms Reported, Judgement Intact, Mood/Affect Appropiate, Orientated x3 Other Systems: Reviewed and Negative Patient History - Patient Medical History Hx Anemia: No Hx Asthma: No Hx Chronic Obstructive Pulmonary Disease (COPD): No Hx Cardiac Disorders: No Hx Hypertension: No Hx Hypercholesterolemia: No HX Cerebrovascular Accident: No Hx Seizures: No Hx Diabetes: No Hx Gastrointestinal Disorders: No Hx Genitourinary Disorders: No Hx Sexually Transmitted Disorders: No Hx Renal Disease (ESRD): No Hx Thyroid Disease: No Hx Human Immunodeficiency Virus (HIV): No (NEGATIVE HX last 08/21) Hx Hepatitis C: Yes (since 2003-TREATED 2005-UNDETECTABLE) Hx Depression: Yes (AND ANXIETY DISORDER;NOT CURRENTLY ON MED SINC 8 MONTHS ) Hx Suicide Attempt: No (DENIES) Hx Bipolar Disorder: No Hx Schizophrenia: No Other Medical History: no suicidal,no homicidal - Patient Surgical History Past Surgical History: No Hx Neurologic Surgery: No Hx Cataract Extraction: No Hx Cardiac Surgery: No Hx Lung Surgery: No Hx Breast Surgery: No Hx Breast Biopsy: No Hx Abdominal Surgery: No Hx Appendectomy: No Hx Cholecystectomy: No Hx Genitourinary Surgery: No Hx Section: No Hx Orthopedic Surgery: No - PPD History Previous Implant?: Yes Documented Results: Negative w/proof Implanted On Prior [facility] Admission?: Yes Date: 12/01/18 Results: 0 mm PPD to be Administered?: No - Smoking Cessation Smoking history: Current every day smoker Have you smoked in the past 12 months: No Aproximately how many cigarettes per day: 20 Hx Chewing Tobacco Use: No Initiated information on smoking cessation: Yes 'Breaking Loose' booklet given: 03/04/19 - Substance & Tx. History Hx Alcohol Use: Yes Hx Substance Use: Yes Substance Use Type: Alcohol, Heroin Hx Substance Use Treatment: Yes ([facility] 11/29/18 to 12/03/18) - Substances abused Alcohol Substance route: Oral Frequency: Daily Amount used: 1/5 th of vodka Age of first use: 16 Date of last use: 03/04/19 Buprenorphine Substance route: Oral Frequency: Daily Amount used: "pieces" Age of first use: 38 Date of last use: 03/03/19 Heroin Substance route: Inhalation Frequency: Daily Amount used: 2 bags Age of first use: 21 Date of last use: 03/03/19 Admission Physical Exam BHS - Vital Signs Vital Signs: Vital Signs - 24 hr 03/04/19 09:43 Temperature 97.2 F L Pulse Rate 92 H Respiratory 20 Rate Blood Pressure 137/91 - Physical General Appearance: Yes: Moderate Distress, Tremorous, Irritable, Sweating, Anxious HEENTM: Yes: Normal ENT Inspection, MARÍA ELENA, Pharynx Normal Respiratory: Yes: Lungs Clear, Normal Breath Sounds, No Respiratory Distress Neck: Yes: Within Normal Limits, Supple, Trachea in good position Breast: Yes: Within Normal Limits Cardiology: Yes: Within Normal Limits, Regular Rhythm, Regular Rate, S1, S2 Abdominal: Yes: Within Normal Limits, Normal Bowel Sounds, Non Tender, Flat, Soft Genitourinary: Yes: Within Normal Limits Back: Yes: Muscle Spasm Musculoskeletal: Yes: Back pain, Joint Stiffness, Muscle Pain Extremities: Yes: Tremors Neurological: Yes: pollution control engineer II-XII NML intact, Fully Oriented, Alert, Motor Strength 5/5 Integumentary: Yes: Dry, Other (deformity of right 5th finger) Lymphatic: Yes: Within Normal Limits - Diagnostic (1) Opioid dependence with withdrawal Current Visit: No Status: Chronic (2) History of drug overdose Current Visit: No Status: Acute Comment: 11/29/18 (3) Alcohol dependence with uncomplicated withdrawal Current Visit: No Status: Chronic (4) Nicotine dependence Current Visit: No Status: Chronic Qualifiers: Nicotine product type: cigarettes Substance use status: uncomplicated Qualified Code(s): F17.210 - Nicotine dependence, cigarettes, uncomplicated (5) History of hepatitis C Current Visit: Yes Status: Acute Cleared for Admission S - Detox or Rehab [facility] Level of Care: Medically Managed (patent would like to be on librium) Detox Regimen/Protocol: Methadone/Librium Breathalyzer - Breathalyzer Breathalyzer: 0.195 Urine Drug Screen - Test Device Lot number: [id number] Expiration date: 10/02/20 - Control Is test valid?: Yes - Results Drug screen NEGATIVE: No Urine drug screen results: AMP-Amphetamines, MOP-Opiates, BUP-Suboxone Inpatient Rehab Admission - Rehab Decision to Admit Inpatient rehab admission?: No
[2019-03-04] MEDS ORDERED: METHADONE HCL 10 MG TABLET (FOR DETOX USE ONLY) PO ONE (10:44)
[2019-03-04] MEDS ORDERED: MAGNESIUM HYDROX 2400MG/30ML ORAL SUSPENSION 30 ML CUP PO PRN (10:44)
[2019-03-04] MEDS ORDERED: MAGNESIUM CITRATE 300 ML BOTTLE PO PRN (10:44)
[2019-03-04] MEDS ORDERED: BISMUTH SUBSALICYLATE 524 MG/30 ML UD PO PRN (10:44)
[2019-03-04] MEDS ORDERED: MENTHOL/PHENOL 1 EACH UD MM PRN (10:44)
[2019-03-04] MEDS ORDERED: chlordiazePOXIDE HCL 25 MG CAPSULE PO PRN (10:44)
[2019-03-04] MEDS ORDERED: IBUPROFEN 400 MG TABLET (FP) PO PRN (10:44)
[2019-03-04] MEDS ORDERED: MELATONIN 5 MG TABLETS PO PRN (10:44)
[2019-03-04] MEDS ORDERED: MAG HYDROX/AL HYDROX/SIMETH 30 ML UNIT-DOSE CUP PO PRN (10:44)
[2019-03-04] MEDS ORDERED: ACETAMINOPHEN 325 MG TABLET (FP) PO PRN ×2 (10:44)
[2019-03-04] MEDS: chlordiazePOXIDE HCL 25 MG CAPSULE PO SCH ×3 (11:44→22:23)
[2019-03-04] MEDS: NICOTINE POLACRILEX 2 MG GUM BUC PRN (13:06)
[2019-03-04] MEDS: cloNIDine HCL 0.1 MG TABLET PO PRN ×2 (13:06→22:27)
[2019-03-04] MEDS: THIAMINE HCL 100 MG TABLET (FP) PO SCH (22:22)
[2019-03-05] MEDS: chlordiazePOXIDE HCL 25 MG CAPSULE PO SCH ×4 (06:34→21:59)
[2019-03-05] MEDS: NICOTINE POLACRILEX 2 MG GUM BUC PRN ×3 (08:09→17:47)
[2019-03-05] MEDS: PRENATAL VITAMINS W/ FOLIC ACID TABLET (FP) PO SCH (09:39)
[2019-03-05] MEDS: cloNIDine HCL 0.1 MG TABLET PO PRN (09:44)
[2019-03-05] MEDS ORDERED: METHADONE HCL 5 MG TABLET (FOR DETOX USE ONLY) PO ONE (10:00)
[2019-03-05 10:23] LABS: HEMATOCRIT 42.9 % (35.4-49); HEMOGLOBIN 14.2 GM/dL (11.7-16.9); MCHC 33.2 g/dl (32.0-35.9); MEAN CELL VOLUME 96.4 fl (80-96); MEAN PLT VOLUME 8.7 fl (7.5-11.1); PLATELET COUNT 288 K/MM3 (134-434); RBC 4.45 M/mm3 (4.00-5.60); RDW 14.9 % (11.9-15.9); WHITE BLOOD COUNT 4.5 K/mm3 (4.0-10.0)
[2019-03-05 10:42] LABS: ALBUMIN 4.2 g/dl (3.4-5.0); BILIRUBIN,TOTAL 0.8 mg/dL (0.2-1); BLOOD UREA NITROGEN 11.5 mg/dL (7-18); CREATININE 0.8 mg/dL (0.55-1.3); POTASSIUM 3.9 mmol/L (3.5-5.1); TOT PROT 7.6 g/dl (6.4-8.2)
--- NOTE | 2019-03-05 12:45 | PN ---
S CIWA - CIWA Score Nausea/Vomitin Muscle Tremors: 2 Anxiety: 2 Agitation: 2 Paroxysmal Sweats: No Perspiration Orientation: 0-Oriented Tacttile Disturbances: 1-Very Mild Itch/Numbness Auditory Disturbances: 0-None Visual Disturbances: 0-None Headache: 2-Mild CIWA-Ar Total Score: 11 BHS COWS - Scale Resting Pulse: 0= [place] 80 or Below Sweatin= No chills or Flushing Restless Observation: 1= Difficult to Sit Still Pupil Size: 1= Pupils >than Normal Bone or Joint Aches: 1= Mild Discomfort Runny Nose/ Eye Tearin= Nasal Congestion GI Upset > 30mins: 2= Nausea/Diarrhea Tremor Observation of Outstretched Hands: 2= Slight Tremor Visible Yawning Observation: 1= 1-2x During Session Anxiety or Irritability: 2=Irritable/Anxious Goose Flesh Skin: 0=Smooth Skin COWS Score: 11 S Progress Note (SOAP) Subjective: alert,irritable,anxious,interrupted sleep,pain in the body Objective: 03/05/19 12:44 Vital Signs Temperature 97.5 F L 03/05/19 10:05 Pulse Rate 74 03/05/19 10:05 Respiratory Rate 18 03/05/19 10:05 Blood Pressure 116/66 03/05/19 10:05 O2 Sat by Pulse Oximetry (%) 03/05/19 12:44 Laboratory Last Values WBC 4.5 K/mm3 (4.0-10.0) 03/05/19 05:45 RBC 4.45 M/mm3 (4.00-5.60) 03/05/19 05:45 Hgb 14.2 GM/dL (11.7-16.9) 03/05/19 05:45 Hct 42.9 % (35.4-49) 03/05/19 05:45 MCV 96.4 fl (80-96) H 03/05/19 05:45 MCH 32.0 pg (25.7-33.7) 03/05/19 05:45 MCHC 33.2 g/dl (32.0-35.9) 03/05/19 05:45 RDW 14.9 % (11.9-15.9) 03/05/19 05:45 Plt Count 288 K/MM3 (134-434) D 03/05/19 05:45 MPV 8.7 fl (7.5-11.1) D 03/05/19 05:45 Sodium 137 mmol/L (136-145) 03/05/19 05:45 Potassium 3.9 mmol/L (3.5-5.1) 03/05/19 05:45 Chloride 102 mmol/L (98-107) 03/05/19 05:45 Carbon Dioxide 26 mmol/L (21-32) 03/05/19 05:45 Anion Gap 9 MMOL/L (8-16) 03/05/19 05:45 BUN 11.5 mg/dL (7-18) 03/05/19 05:45 Creatinine 0.8 mg/dL (0.55-1.3) 03/05/19 05:45 Est GFR (CKD-EPI)AfAm 128.60 03/05/19 05:45 Est GFR (CKD-EPI)NonAf 110.96 03/05/19 05:45 Random Glucose 97 mg/dL (74-106) 03/05/19 05:45 Calcium 9.0 mg/dL (8.5-10.1) 03/05/19 05:45 Total Bilirubin 0.8 mg/dL (0.2-1) 03/05/19 05:45 AST 125 U/L (15-37) H 03/05/19 05:45 ALT 176 U/L (13-61) H 03/05/19 05:45 Alkaline Phosphatase 102 U/L (45-117) 03/05/19 05:45 Total Protein 7.6 g/dl (6.4-8.2) 03/05/19 05:45 Albumin 4.2 g/dl (3.4-5.0) 03/05/19 05:45 RPR Titer Nonreactive (NONREACTIVE) 03/05/19 05:45 Assessment: 03/05/19 12:45 withdrawal symptom Plan: continue detox methadone and librium regimen,ast 125,alt 176,will repeat alt,ast ,inr in am
[2019-03-05] MEDS: THIAMINE HCL 100 MG TABLET (FP) PO SCH (21:59)
[2019-03-06] MEDS: chlordiazePOXIDE HCL 25 MG CAPSULE PO SCH ×4 (05:44→22:04)
[2019-03-06] MEDS: METHOCARBAMOL 500 MG TABLET PO PRN ×3 (06:56→22:04)
[2019-03-06] MEDS: hydrOXYzine PAMOATE 25 MG CAPSULE (FP) PO PRN ×3 (06:56→22:04)
[2019-03-06] MEDS ORDERED: METHADONE HCL 10 MG TABLET (FOR DETOX USE ONLY) PO ONE (10:00)
[2019-03-06] MEDS: PRENATAL VITAMINS W/ FOLIC ACID TABLET (FP) PO SCH (10:19)
[2019-03-06 10:21] LABS: PH,URINE 5.5 (5.0-8.0); URINE APPEARANCE CLEAR; URINE BILIRUBIN NEGATIVE (NEGATIVE); URINE COLOR YELLOW; URINE GLUCOSE (UA) NEGATIVE (NEGATIVE); URINE KETONE NEGATIVE (NEGATIVE); URINE LEUK ESTERASE NEGATIVE (NEGATIVE); URINE NITRITE NEGATIVE (NEGATIVE); URINE PROTEIN NEGATIVE (NEGATIVE); URINE UROBILINOGEN 0.2 mg/dL (0.2-1.0)
--- NOTE | 2019-03-06 10:25 | PN ---
[facility] CIWA - CIWA Score Nausea/Vomitin-No Nausea/No Vomiting Muscle Tremors: 2 Anxiety: 3 Agitation: 0-Normal Activity Paroxysmal Sweats: 3 Orientation: 0-Oriented Tacttile Disturbances: 1-Very Mild Itch/Numbness Auditory Disturbances: 0-None Visual Disturbances: 0-None Headache: 1-Very Mild CIWA-Ar Total Score: 10 S COWS - Scale Resting Pulse: 0= [place] 80 or Below Sweatin= Beads of Sweat on Face Restless Observation: 1= Difficult to Sit Still Pupil Size: 0= Normal to Room Light Bone or Joint Aches: 1= Mild Discomfort Runny Nose/ Eye Tearin= None GI Upset > 30mins: 0= None Tremor Observation of Outstretched Hands: 2= Slight Tremor Visible Yawning Observation: 1= 1-2x During Session Anxiety or Irritability: 2=Irritable/Anxious Goose Flesh Skin: 0=Smooth Skin COWS Score: 10 S Progress Note (SOAP) Subjective: c/o anxiety, irritability, sweats, headache, shakes, and muscle aches. Objective: 03/06/19 10:24 Vital Signs 03/06/19 03/06/19 03/06/19 03:30 07:21 09:34 Temperature 96 F L 97.0 F L Pulse Rate 55 L 75 Respiratory 18 18 18 Rate Blood Pressure 100/60 140/77 Laboratory Last Values WBC 4.5 K/mm3 (4.0-10.0) 03/05/19 05:45 RBC 4.45 M/mm3 (4.00-5.60) 03/05/19 05:45 Hgb 14.2 GM/dL (11.7-16.9) 03/05/19 05:45 Hct 42.9 % (35.4-49) 03/05/19 05:45 MCV 96.4 fl (80-96) H 03/05/19 05:45 MCH 32.0 pg (25.7-33.7) 03/05/19 05:45 MCHC 33.2 g/dl (32.0-35.9) 03/05/19 05:45 RDW 14.9 % (11.9-15.9) 03/05/19 05:45 Plt Count 288 K/MM3 (134-434) D 03/05/19 05:45 MPV 8.7 fl (7.5-11.1) D 03/05/19 05:45 Sodium 137 mmol/L (136-145) 03/05/19 05:45 Potassium 3.9 mmol/L (3.5-5.1) 03/05/19 05:45 Chloride 102 mmol/L (98-107) 03/05/19 05:45 Carbon Dioxide 26 mmol/L (21-32) 03/05/19 05:45 Anion Gap 9 MMOL/L (8-16) 03/05/19 05:45 BUN 11.5 mg/dL (7-18) 03/05/19 05:45 Creatinine 0.8 mg/dL (0.55-1.3) 03/05/19 05:45 Est GFR (CKD-EPI)AfAm 128.60 03/05/19 05:45 Est GFR (CKD-EPI)NonAf 110.96 03/05/19 05:45 Random Glucose 97 mg/dL (74-106) 03/05/19 05:45 Calcium 9.0 mg/dL (8.5-10.1) 03/05/19 05:45 Total Bilirubin 0.8 mg/dL (0.2-1) 03/05/19 05:45 AST 125 U/L (15-37) H 03/05/19 05:45 ALT 176 U/L (13-61) H 03/05/19 05:45 Alkaline Phosphatase 102 U/L (45-117) 03/05/19 05:45 Total Protein 7.6 g/dl (6.4-8.2) 03/05/19 05:45 Albumin 4.2 g/dl (3.4-5.0) 03/05/19 05:45 Urine Color Yellow 03/06/19 08:10 Urine Appearance Clear 03/06/19 08:10 Urine pH 5.5 (5.0-8.0) 03/06/19 08:10 Ur Specific [place] 1.022 (1.010-1.035) 03/06/19 08:10 Urine Protein Negative (NEGATIVE) 03/06/19 08:10 Urine Glucose (UA) Negative (NEGATIVE) 03/06/19 08:10 Urine Ketones Negative (NEGATIVE) 03/06/19 08:10 Urine Blood Negative (NEGATIVE) 03/06/19 08:10 Urine Nitrite Negative (NEGATIVE) 03/06/19 08:10 Urine Bilirubin Negative (NEGATIVE) 03/06/19 08:10 Urine Urobilinogen 0.2 mg/dL (0.2-1.0) 03/06/19 08:10 Ur Leukocyte Esterase Negative (NEGATIVE) 03/06/19 08:10 RPR Titer Nonreactive (NONREACTIVE) 03/05/19 05:45 Labs noted. Assessment: 03/06/19 10:25 AOX3, in no acute respiratory distress. Full ROM, ambulating in the unit. Withdrawal symptoms. Plan: continue detox. Increase fluids.
[2019-03-06 10:27] LABS: SGOT/AST 184 U/L (15-37); SGPT/ALT 201 U/L (13-61)
[2019-03-06 11:05] LABS: INR 0.89 (0.83-1.09); PROTHROMBIN TIME (PATIENT) 10.5 SEC (9.7-13.0)
[2019-03-06] MEDS: NICOTINE POLACRILEX 2 MG GUM BUC PRN ×3 (12:12→20:33)
[2019-03-06] MEDS: THIAMINE HCL 100 MG TABLET (FP) PO SCH (22:04)
[2019-03-07] MEDS ORDERED: chlordiazePOXIDE HCL 10 MG CAPSULE PO PRN
[2019-03-07] MEDS: hydrOXYzine PAMOATE 25 MG CAPSULE (FP) PO PRN (05:43)
[2019-03-07] MEDS: chlordiazePOXIDE HCL 10 MG CAPSULE PO SCH ×4 (05:43→22:08)
[2019-03-07] MEDS: METHOCARBAMOL 500 MG TABLET PO PRN ×3 (05:43→22:09)
[2019-03-07] MEDS ORDERED: METHADONE HCL 5 MG TABLET (FOR DETOX USE ONLY) PO ONE (06:00)
[2019-03-07] MEDS: NICOTINE POLACRILEX 2 MG GUM BUC PRN ×4 (08:24→17:28)
[2019-03-07] MEDS: PRENATAL VITAMINS W/ FOLIC ACID TABLET (FP) PO SCH (10:12)
--- NOTE | 2019-03-07 10:40 | PN ---
[facility] CIWA - CIWA Score Nausea/Vomitin-Mild Nausea/No Vomiting Muscle Tremors: 2 Anxiety: 1-Mildly Anxious Agitation: 1-Slight > Activity Paroxysmal Sweats: 1-Minimal Palms Moist Orientation: 1-Uncertain about Date Tacttile Disturbances: 0-None Auditory Disturbances: 0-None Visual Disturbances: 0-None Headache: 0-None Present CIWA-Ar Total Score: 7 S COWS - Scale Resting Pulse: 1= [place] 81-100 Sweatin= Chills/Flushing Restless Observation: 5= Unable to Sit Still Pupil Size: 1= Pupils >than Normal Bone or Joint Aches: 1= Mild Discomfort Runny Nose/ Eye Tearin= Nasal Congestion GI Upset > 30mins: 0= None Tremor Observation of Outstretched Hands: 1= Tremor [place], Not Seen Yawning Observation: 0= None Anxiety or Irritability: 0= None Goose Flesh Skin: 0=Smooth Skin COWS Score: 11 S Progress Note (SOAP) Subjective: pt states he is feeling fine on detox meds- would like to go home [place] O: Vital Signs - 24 hr 03/06/19 03/06/19 03/07/19 17:09 21:24 00:30 Temperature 97.7 F 97.7 F Pulse Rate 74 71 Respiratory 18 18 18 Rate Blood Pressure 131/91 118/89 03/07/19 03/07/19 03/07/19 03:30 06:00 09:36 Temperature 96.8 F L 96.4 F L Pulse Rate 54 L 69 Respiratory 18 18 18 Rate Blood Pressure 105/63 118/77 03/07/19 13:24 Temperature 97.7 F Pulse Rate 71 Respiratory 18 Rate Blood Pressure 127/75 Laboratory Tests 03/05/19 03/05/19 03/05/19 05:45 05:45 05:45 WBC 4.5 RBC 4.45 Hgb 14.2 Hct 42.9 MCV 96.4 H MCH 32.0 MCHC 33.2 RDW 14.9 Plt Count 288 D MPV 8.7 D PT with INR INR Sodium 137 Potassium 3.9 Chloride 102 Carbon Dioxide 26 Anion Gap 9 BUN 11.5 Creatinine 0.8 Est GFR (CKD-EPI)AfAm 128.60 Est GFR (CKD-EPI)NonAf 110.96 Random Glucose 97 Calcium 9.0 Total Bilirubin 0.8 AST 125 H ALT 176 H Alkaline Phosphatase 102 Total Protein 7.6 Albumin 4.2 Urine Color Urine Appearance Urine pH Ur Specific [place] Urine Protein Urine Glucose (UA) Urine Ketones Urine Blood Urine Nitrite Urine Bilirubin Urine Urobilinogen Ur Leukocyte Esterase RPR Titer Nonreactive 03/06/19 03/06/19 03/06/19 08:00 08:00 08:10 WBC RBC Hgb Hct MCV MCH MCHC RDW Plt Count MPV PT with INR 10.50 INR 0.89 Sodium Potassium Chloride Carbon Dioxide Anion Gap BUN Creatinine Est GFR (CKD-EPI)AfAm Est GFR (CKD-EPI)NonAf Random Glucose Calcium Total Bilirubin AST 184 H ALT 201 H Cancelled Alkaline Phosphatase Total Protein Albumin Urine Color Urine Appearance Urine pH Ur Specific [place] Urine Protein Urine Glucose (UA) Urine Ketones Urine Blood Urine Nitrite Urine Bilirubin Urine Urobilinogen Ur Leukocyte Esterase RPR Titer 03/06/19 08:10 WBC RBC Hgb Hct MCV MCH MCHC RDW Plt Count MPV PT with INR INR Sodium Potassium Chloride Carbon Dioxide Anion Gap BUN Creatinine Est GFR (CKD-EPI)AfAm Est GFR (CKD-EPI)NonAf Random Glucose Calcium Total Bilirubin AST ALT Alkaline Phosphatase Total Protein Albumin Urine Color Yellow Urine Appearance Clear Urine pH 5.5 Ur Specific [place] 1.022 Urine Protein Negative Urine Glucose (UA) Negative Urine Ketones Negative Urine Blood Negative Urine Nitrite Negative Urine Bilirubin Negative Urine Urobilinogen 0.2 Ur Leukocyte Esterase Negative RPR Titer high AST/ALT A/p AUD/OUD- continue detox protocols increase liver enzymes
[2019-03-07] MEDS ORDERED: cloNIDine HCL 0.1 MG TABLET PO ONE (21:30)
[2019-03-07] MEDS: THIAMINE HCL 100 MG TABLET (FP) PO SCH (22:09)
[2019-03-08] MEDS ORDERED: chlordiazePOXIDE HCL 10 MG CAPSULE PO SCH (05:00)
[2019-03-08] MEDS: METHOCARBAMOL 500 MG TABLET PO PRN (06:13)
--- NOTE | 2019-03-08 09:10 | DS ---
[facility] Detox Discharge Summary Admission Date: 03/04/19 Discharge Date: 03/08/19 - History Present History: Alcohol Dependence, Opioid Dependence Pertinent Past History: 43 years old male with heroin and alcohol dependence completed detox. Pt will f/ u with PCP. Pt will go to NA/AA meetings. Vital Signs - 24 hr 03/07/19 03/07/19 03/07/19 09:36 13:24 17:28 Temperature 96.4 F L 97.7 F 97.2 F L Pulse Rate 69 71 63 Respiratory 18 18 18 Rate Blood Pressure 118/77 127/75 122/76 03/07/19 03/08/19 03/08/19 21:07 00:30 03:47 Temperature 98.2 F Pulse Rate 88 Respiratory 18 18 18 Rate Blood Pressure 160/82 03/08/19 08:19 Temperature 97.2 F L Pulse Rate 55 L Respiratory 18 Rate Blood Pressure 94/65 Laboratory Tests 03/05/19 03/05/19 03/05/19 05:45 05:45 05:45 WBC 4.5 RBC 4.45 Hgb 14.2 Hct 42.9 MCV 96.4 H MCH 32.0 MCHC 33.2 RDW 14.9 Plt Count 288 D MPV 8.7 D PT with INR INR Sodium 137 Potassium 3.9 Chloride 102 Carbon Dioxide 26 Anion Gap 9 BUN 11.5 Creatinine 0.8 Est GFR (CKD-EPI)AfAm 128.60 Est GFR (CKD-EPI)NonAf 110.96 Random Glucose 97 Calcium 9.0 Total Bilirubin 0.8 AST 125 H ALT 176 H Alkaline Phosphatase 102 Total Protein 7.6 Albumin 4.2 Urine Color Urine Appearance Urine pH Ur Specific [place] Urine Protein Urine Glucose (UA) Urine Ketones Urine Blood Urine Nitrite Urine Bilirubin Urine Urobilinogen Ur Leukocyte Esterase RPR Titer Nonreactive 03/06/19 03/06/19 03/06/19 08:00 08:00 08:10 WBC RBC Hgb Hct MCV MCH MCHC RDW Plt Count MPV PT with INR 10.50 INR 0.89 Sodium Potassium Chloride Carbon Dioxide Anion Gap BUN Creatinine Est GFR (CKD-EPI)AfAm Est GFR (CKD-EPI)NonAf Random Glucose Calcium Total Bilirubin AST 184 H ALT 201 H Cancelled Alkaline Phosphatase Total Protein Albumin Urine Color Urine Appearance Urine pH Ur Specific [place] Urine Protein Urine Glucose (UA) Urine Ketones Urine Blood Urine Nitrite Urine Bilirubin Urine Urobilinogen Ur Leukocyte Esterase RPR Titer 03/06/19 08:10 WBC RBC Hgb Hct MCV MCH MCHC RDW Plt Count MPV PT with INR INR Sodium Potassium Chloride Carbon Dioxide Anion Gap BUN Creatinine Est GFR (CKD-EPI)AfAm Est GFR (CKD-EPI)NonAf Random Glucose Calcium Total Bilirubin AST ALT Alkaline Phosphatase Total Protein Albumin Urine Color Yellow Urine Appearance Clear Urine pH 5.5 Ur Specific [place] 1.022 Urine Protein Negative Urine Glucose (UA) Negative Urine Ketones Negative Urine Blood Negative Urine Nitrite Negative Urine Bilirubin Negative Urine Urobilinogen 0.2 Ur Leukocyte Esterase Negative RPR Titer a/p: 43 years old male with heroin and alcohol dependence: completed detox. d/w pt the need to abstain from alcohol given high liver enzymes - Physical Exam Results Vital Signs: Vital Signs Temperature 97.2 F L 03/08/19 08:19 Pulse Rate 55 L 03/08/19 08:19 Respiratory Rate 18 03/08/19 08:19 Blood Pressure 94/65 03/08/19 08:19 O2 Sat by Pulse Oximetry (%) - Treatment Hospital Course: Detox Protocol Followed, Detoxed Safely, Responded well, Discharged Condition Good - Medication Discharge Medications: Ambulatory Orders Naloxone HCl [Narcan] 4 mg NS PRN #1 spray 12/03/18 Vitamins (Sjr) - 1 tab PO DAILY #30 tablet 03/08/19 Thiamine HCl [Vitamin B1 -] 100 mg PO HS #30 tablet 03/08/19
[2019-03-08] MEDS: NICOTINE POLACRILEX 2 MG GUM BUC PRN (09:19)
[2019-03-08 10:07] VITALS: BP 114/79; PULSE 64
[2019-03-08 10:51] VITALS: TEMP 95.7
[2019-03-09] MEDS ORDERED: chlordiazePOXIDE HCL 10 MG CAPSULE PO ONE (05:00)
== END 2019-03-08 10:10 | disposition home or self-care (01) | DRG 897 ==
LOC: YASAS 09:24 → Y6N 10:54
PROVIDERS: ADMIT Allergy & Immunology; ATTEND Allergy & Immunology
PROC: HZ2ZZZZ Detoxification Services for Substance Abuse Treatment (ICD-10-PCS; principal; 2019-03-04)
DX: F11.23 Opioid dependence with withdrawal (principal); F10.230 Alcohol dependence with withdrawal, uncomplicated; F17.210 Nicotine dependence, cigarettes, uncomplicated; R74.0 Nonspecific elevation of levels of transaminase and lactic acid dehydrogenase [LDH]; Z86.19 Personal history of other infectious and parasitic diseases; Z88.0 Allergy status to penicillin; Z86.59 Personal history of other mental and behavioral disorders
CPT/HCPCS: 36415; 80053; 81003; 84450; 84460; 85027; 85610; 86593; J0735

== ENCOUNTER 2021-02-03 10:37 | Inpatient (IN) | payer OTHER ==
[2021-02-03] MEDS ORDERED: MAG HYDROX/AL HYDROX/SIMETH 30 ML UNIT-DOSE CUP PO PRN (11:22)
[2021-02-03] MEDS ORDERED: ONDANSETRON *ODT* 4 MG TABLET SL PRN (11:22)
[2021-02-03] MEDS ORDERED: ACETAMINOPHEN 325 MG TABLET (FP) PO PRN ×2 (11:22)
[2021-02-03] MEDS ORDERED: chlordiazePOXIDE HCL 25 MG CAPSULE PO PRN (11:22)
[2021-02-03] MEDS ORDERED: BISMUTH SUBSALICYLATE 262 MG/15 ML BTL PO PRN (11:22)
[2021-02-03] MEDS ORDERED: MAGNESIUM HYDROX 2400MG/30ML ORAL SUSPENSION 30 ML CUP PO PRN (11:22)
[2021-02-03] MEDS ORDERED: MAGNESIUM CITRATE 300 ML BOTTLE PO PRN (11:22)
[2021-02-03] MEDS ORDERED: MENTHOL/PHENOL 1 EACH UD MM PRN (11:22)
[2021-02-03 11:41] VITALS: BMI 38.8
[2021-02-03] MEDS: chlordiazePOXIDE HCL 25 MG CAPSULE PO SCH ×3 (12:53→22:34)
[2021-02-03] MEDS: PRENATAL VITAMINS W/ FOLIC ACID TABLET (FP) PO SCH (12:54)
[2021-02-03] MEDS: hydrOXYzine PAMOATE 25 MG CAPSULE (FP) PO SCH ×3 (13:42→22:35)
[2021-02-03] MEDS ORDERED: cloNIDine HCL 0.1 MG TABLET PO ONE ×2 (17:14→23:29)
[2021-02-03] MEDS: METHOCARBAMOL 500 MG TABLET PO PRN (18:02)
[2021-02-03] MEDS ORDERED: MELATONIN 5 MG TABLETS PO SCH (22:00)
[2021-02-03] MEDS: MIRTAZAPINE 15 MG TABLET (FP) PO SCH (22:35)
[2021-02-03] MEDS: THIAMINE HCL 100 MG TABLET (FP) PO SCH (22:35)
[2021-02-04] MEDS ORDERED: methaDONE HCL 10 MG TABLET ONE (04:08)
[2021-02-04] MEDS ORDERED: methaDONE HCL 40 MG DISPERSABLE TABLET ONE (04:08)
[2021-02-04] MEDS: methaDONE 80 MG, methaDONE 10 MG PO SCH (05:14)
[2021-02-04] MEDS: hydrOXYzine PAMOATE 25 MG CAPSULE (FP) PO SCH ×5 (05:15→22:16)
[2021-02-04] MEDS: chlordiazePOXIDE HCL 25 MG CAPSULE PO SCH ×4 (05:15→22:17)
[2021-02-04] MEDS ORDERED: methaDONE HCL 10 MG TABLET PO SCH (06:00)
[2021-02-04] MEDS: PRENATAL VITAMINS W/ FOLIC ACID TABLET (FP) PO SCH (10:40)
[2021-02-04 11:50] LABS: HEMATOCRIT 39.7 % (35.4-49); HEMOGLOBIN 13.3 GM/dL (11.7-16.9); MCHC 33.5 g/dl (32.0-35.9); MEAN CELL VOLUME 95.7 fl (80-96); MEAN PLT VOLUME 8.4 fl (7.5-11.1); PLATELET COUNT 241 10^3/uL (134-434); RBC 4.15 M/mm3 (4.00-5.60); WHITE BLOOD COUNT 5.2 K/mm3 (4.0-10.0)
[2021-02-04 11:59] LABS: ALBUMIN 3.2 g/dl (3.4-5.0); BLOOD UREA NITROGEN 14.8 mg/dL (7-18)
[2021-02-04 12:00] LABS: CALCIUM 9.4 mg/dL (8.5-10.1)
[2021-02-04 12:04] LABS: BILIRUBIN,TOTAL 1.1 mg/dL (0.2-1); TOT PROT 6.5 g/dl (6.4-8.2)
[2021-02-04] MEDS ORDERED: cloNIDine HCL 0.1 MG TABLET PO ONE (14:00)
[2021-02-04] MEDS: THIAMINE HCL 100 MG TABLET (FP) PO SCH (22:16)
[2021-02-04] MEDS: MIRTAZAPINE 15 MG TABLET (FP) PO SCH (22:16)
[2021-02-05] MEDS ORDERED: methaDONE HCL 10 MG TABLET ONE ×2 (04:22→07:06)
[2021-02-05] MEDS ORDERED: methaDONE HCL 40 MG DISPERSABLE TABLET ONE (04:23)
[2021-02-05] MEDS: hydrOXYzine PAMOATE 25 MG CAPSULE (FP) PO SCH ×5 (05:17→22:21)
[2021-02-05] MEDS: chlordiazePOXIDE HCL 25 MG CAPSULE PO SCH ×4 (05:18→22:22)
[2021-02-05] MEDS: methaDONE 80 MG, methaDONE 10 MG PO SCH (05:19)
[2021-02-05] MEDS: PRENATAL VITAMINS W/ FOLIC ACID TABLET (FP) PO SCH (10:32)
[2021-02-05] MEDS: GABAPENTIN 100 MG CAPSULE PO SCH (14:33)
[2021-02-05] MEDS: IBUPROFEN 400 MG TABLET (FP) PO PRN (17:42)
[2021-02-05] MEDS ORDERED: GABAPENTIN 100 MG CAPSULE PO SCH (22:00)
[2021-02-05] MEDS: THIAMINE HCL 100 MG TABLET (FP) PO SCH (22:20)
[2021-02-05] MEDS: MIRTAZAPINE 15 MG TABLET (FP) PO SCH (22:21)
[2021-02-05] MEDS: METHOCARBAMOL 500 MG TABLET PO PRN (22:23)
[2021-02-06] MEDS ORDERED: methaDONE HCL 10 MG TABLET ONE (04:11)
[2021-02-06] MEDS ORDERED: methaDONE HCL 40 MG DISPERSABLE TABLET ONE (04:12)
[2021-02-06] MEDS: hydrOXYzine PAMOATE 25 MG CAPSULE (FP) PO SCH ×5 (05:28→22:26)
[2021-02-06] MEDS: GABAPENTIN 100 MG CAPSULE PO SCH (05:28)
[2021-02-06] MEDS: methaDONE 80 MG, methaDONE 10 MG PO SCH (05:29)
[2021-02-06] MEDS: IBUPROFEN 400 MG TABLET (FP) PO PRN ×2 (05:32→17:48)
[2021-02-06] MEDS: chlordiazePOXIDE HCL 10 MG CAPSULE PO SCH ×4 (05:40→22:28)
[2021-02-06] MEDS: chlordiazePOXIDE HCL 10 MG CAPSULE PO PRN ×3 (08:45→19:25)
[2021-02-06] MEDS: PRENATAL VITAMINS W/ FOLIC ACID TABLET (FP) PO SCH (10:09)
[2021-02-06] MEDS: METHOCARBAMOL 500 MG TABLET PO PRN (10:09)
[2021-02-06] MEDS: GABAPENTIN 400 MG CAPSULE PO SCH ×2 (13:54→22:27)
[2021-02-06] MEDS ORDERED: amLODIPine BESYLATE 10 MG TABLET (FP) PO ONE (15:00)
[2021-02-06] MEDS: MIRTAZAPINE 15 MG TABLET (FP) PO SCH (22:27)
[2021-02-06] MEDS: THIAMINE HCL 100 MG TABLET (FP) PO SCH (22:27)
[2021-02-07] MEDS ORDERED: methaDONE HCL 40 MG DISPERSABLE TABLET ONE (04:13)
[2021-02-07] MEDS ORDERED: methaDONE HCL 10 MG TABLET ONE (04:13)
[2021-02-07] MEDS: hydrOXYzine PAMOATE 25 MG CAPSULE (FP) PO SCH ×5 (05:29→21:27)
[2021-02-07] MEDS: methaDONE 80 MG, methaDONE 10 MG PO SCH (05:29)
[2021-02-07] MEDS: chlordiazePOXIDE HCL 10 MG CAPSULE PO SCH ×2 (05:29→17:57)
[2021-02-07] MEDS: IBUPROFEN 400 MG TABLET (FP) PO PRN ×2 (05:30→17:59)
[2021-02-07] MEDS: GABAPENTIN 400 MG CAPSULE PO SCH ×3 (05:33→21:27)
[2021-02-07] MEDS ORDERED: amLODIPine BESYLATE 5 MG TABLET (FP) PO SCH (10:00)
[2021-02-07] MEDS: PRENATAL VITAMINS W/ FOLIC ACID TABLET (FP) PO SCH (10:20)
[2021-02-07 10:23] LABS: ALBUMIN 3.5 g/dl (3.4-5.0)
[2021-02-07 10:25] LABS: BILIRUBIN,DIRECT 0.2 mg/dL (0.0-0.2)
[2021-02-07 10:27] LABS: TOT PROT 7.4 g/dl (6.4-8.2)
[2021-02-07 10:28] LABS: BILIRUBIN,TOTAL 0.5 mg/dL (0.2-1)
[2021-02-07] MEDS ORDERED: MODERNA COVID-19 VACC,MRNA/PF 50 MCG/0.25 ML EACH IM ONE (11:00)
[2021-02-07] MEDS: METHOCARBAMOL 500 MG TABLET PO PRN ×2 (12:19→21:27)
[2021-02-07] MEDS ORDERED: cloNIDine HCL 0.1 MG TABLET PO ONE (21:09)
[2021-02-07] MEDS ORDERED: chlordiazePOXIDE HCL 10 MG CAPSULE PO ONE (21:10)
[2021-02-07] MEDS: THIAMINE HCL 100 MG TABLET (FP) PO SCH (21:27)
[2021-02-07] MEDS: MIRTAZAPINE 15 MG TABLET (FP) PO SCH (21:27)
[2021-02-08 00:08] VITALS: BP 127/81
[2021-02-08] MEDS ORDERED: methaDONE HCL 10 MG TABLET ONE (04:12)
[2021-02-08] MEDS ORDERED: methaDONE HCL 40 MG DISPERSABLE TABLET ONE (04:13)
[2021-02-08] MEDS ORDERED: chlordiazePOXIDE HCL 10 MG CAPSULE PO ONE (05:00)
[2021-02-08] MEDS: GABAPENTIN 400 MG CAPSULE PO SCH (05:25)
[2021-02-08] MEDS: methaDONE 80 MG, methaDONE 10 MG PO SCH (05:25)
[2021-02-08] MEDS: hydrOXYzine PAMOATE 25 MG CAPSULE (FP) PO SCH (05:25)
[2021-02-08] MEDS: IBUPROFEN 400 MG TABLET (FP) PO PRN (05:28)
[2021-02-08] MEDS: METHOCARBAMOL 500 MG TABLET PO PRN (05:29)
[2021-02-08 06:30] VITALS: PULSE 87; TEMP 97.2
== END 2021-02-08 10:09 | disposition home or self-care (01) | DRG 773 ==
LOC: YASAS 10:37 → Y3N 11:49
PROVIDERS: ADMIT Allergy & Immunology; ATTEND Allergy & Immunology
PROC: HZ2ZZZZ Detoxification Services for Substance Abuse Treatment (ICD-10-PCS; principal; 2021-02-03)
DX: F10.230 Alcohol dependence with withdrawal, uncomplicated (principal); F11.20 Opioid dependence, uncomplicated; F14.20 Cocaine dependence, uncomplicated; F41.9 Anxiety disorder, unspecified; F19.282 Other psychoactive substance dependence with psychoactive substance-induced sleep disorder; R94.5 Abnormal results of liver function studies; R00.0 Tachycardia, unspecified; G47.00 Insomnia, unspecified; E66.9 Obesity, unspecified; Z68.38 Body mass index [BMI] 38.0-38.9, adult; Z88.0 Allergy status to penicillin; Z86.19 Personal history of other infectious and parasitic diseases; Z87.891 Personal history of nicotine dependence; Z56.0 Unemployment, unspecified
CPT/HCPCS: 0013A; 36415; 80053; 80076; 85027; 86780; 91301; C9803; J0735; U0003; U0005

== ENCOUNTER 2023-04-05 11:43 | Inpatient (IN) | payer OTHER ==
[2023-04-05 12:08] VITALS: BMI 36.6
[2023-04-05] MEDS ORDERED: BENZOCAINE/MENTHOL (CHLORASEPTIC ) LOZENGE MM PRN (13:10)
[2023-04-05] MEDS ORDERED: guaiFENesin 600 MG TABLET.ER (FP) PO PRN (13:10)
[2023-04-05] MEDS ORDERED: NALOXONE HCL (KLOXXADO) 8 MG SPRAY NS PRN (13:10)
[2023-04-05] MEDS ORDERED: MAG HYDROX/AL HYDROX/SIMETH 30 ML UNIT-DOSE CUP PO PRN (13:10)
[2023-04-05] MEDS ORDERED: IBUPROFEN 400 MG TABLET (FP) PO PRN (13:10)
[2023-04-05] MEDS ORDERED: BENZONATATE 200 MG CAPSULE PO PRN (13:10)
[2023-04-05] MEDS ORDERED: BISMUTH SUBSALICYLATE 524 MG/30 ML PO PRN (13:10)
[2023-04-05] MEDS ORDERED: POLYETHYLENE GLYCOL (HEALTHYLAX) 3350 17 GM PACKET PO PRN (13:10)
[2023-04-05] MEDS ORDERED: NALOXONE HCL 0.4 MG/ML VIAL IM PRN (13:10)
[2023-04-05] MEDS ORDERED: DICYCLOMINE HCL 10 MG CAPSULE PO PRN (13:10)
[2023-04-05] MEDS ORDERED: MAGNESIUM HYDROX 2400MG/30ML ORAL SUSPENSION 30 ML CUP PO PRN (13:10)
[2023-04-05] MEDS ORDERED: LOPERAMIDE HCL 2 MG CAPSULE PO PRN (13:10)
[2023-04-05] MEDS ORDERED: ACETAMINOPHEN 325 MG TABLET (FP) PO PRN (13:10)
[2023-04-05] MEDS ORDERED: LORazepam 2 MG TABLET PO ONE (13:10)
[2023-04-05] MEDS ORDERED: ONDANSETRON *ODT* 4 MG TABLET SL PRN (13:10)
[2023-04-05] MEDS ORDERED: OXYMETAZOLINE 0.05% NASAL SOLUTION 15 ML BOTTLE NS PRN (13:14)
[2023-04-05] MEDS: PRENATAL VITAMINS W/ FOLIC ACID TABLET (FP) PO SCH (13:29)
[2023-04-05] MEDS: BACITRACIN ZINC 15 GM TUBE TOPICAL OINTMENT TP SCH ×2 (16:24→22:55)
[2023-04-05] MEDS: LORazepam 2 MG TABLET PO SCH ×2 (17:49→22:11)
[2023-04-05] MEDS: METHOCARBAMOL 500 MG TABLET PO PRN (22:10)
[2023-04-05] MEDS: IBUPROFEN 600 MG TABLET (FP) PO PRN (22:10)
[2023-04-05] MEDS: MELATONIN 5 MG TABLETS PO SCH (22:11)
[2023-04-05] MEDS: THIAMINE HCL 100 MG TABLET (FP) PO SCH (22:11)
[2023-04-06] MEDS: LORazepam 2 MG TABLET PO SCH ×4 (05:31→22:40)
[2023-04-06] MEDS: METHOCARBAMOL 500 MG TABLET PO PRN (05:35)
[2023-04-06] MEDS: IBUPROFEN 600 MG TABLET (FP) PO PRN (06:18)
[2023-04-06] MEDS: NICOTINE POLACRILEX 4 MG GUM BUC PRN ×3 (06:19→22:40)
[2023-04-06] MEDS ORDERED: cloNIDine HCL 0.1 MG TABLET PO ONE (08:56)
[2023-04-06] MEDS ORDERED: methaDONE HCL 10 MG TABLET PO SCH (09:00)
[2023-04-06] MEDS: methaDONE 40 MG, methaDONE 30 MG PO SCH (09:40)
[2023-04-06] MEDS: PRENATAL VITAMINS W/ FOLIC ACID TABLET (FP) PO SCH (09:40)
[2023-04-06] MEDS: BACITRACIN 0.9 GM PACKET TP SCH ×2 (09:40→22:39)
[2023-04-06] MEDS: hydrOXYzine PAMOATE 25 MG CAPSULE (FP) PO PRN (10:28)
[2023-04-06 11:22] LABS: POTASSIUM 4.2 mmol/L (3.5-5.1)
[2023-04-06 11:26] LABS: ALBUMIN 3.9 g/dl (3.4-5.0); BLOOD UREA NITROGEN 12.1 mg/dL (7-18); CALCIUM 9.3 mg/dL (8.5-10.1)
[2023-04-06 11:28] LABS: HEMATOCRIT 41.3 % (35.4-49); HEMOGLOBIN 13.6 GM/dL (11.7-16.9); MCH 31.1 pg (25.7-33.7); MEAN CELL VOLUME 94.3 fl (80-96); MEAN PLT VOLUME 8.3 fl (7.5-11.1); PLATELET COUNT 221 10^3/uL (134-434); RBC 4.37 M/mm3 (4.00-5.60); RDW 15.6 % (11.9-15.9); WHITE BLOOD COUNT 4.2 K/mm3 (4.0-10.0)
[2023-04-06 11:29] LABS: CREATININE 0.9 mg/dL (0.55-1.3)
[2023-04-06 11:31] LABS: BILIRUBIN,TOTAL 0.4 mg/dL (0.2-1); TOT PROT 7.5 g/dl (6.4-8.2)
[2023-04-06] MEDS: GABAPENTIN 100 MG CAPSULE PO SCH ×2 (13:26→22:40)
[2023-04-06] MEDS: LORazepam 1 MG TABLET PO PRN (19:27)
[2023-04-06] MEDS: THIAMINE HCL 100 MG TABLET (FP) PO SCH (22:40)
[2023-04-06] MEDS: MELATONIN 5 MG TABLETS PO SCH (22:40)
[2023-04-07] MEDS: LORazepam 1 MG TABLET PO SCH ×4 (05:42→22:09)
[2023-04-07] MEDS: methaDONE 40 MG, methaDONE 30 MG PO SCH (05:42)
[2023-04-07] MEDS: GABAPENTIN 100 MG CAPSULE PO SCH ×3 (05:42→22:09)
[2023-04-07] MEDS: NICOTINE POLACRILEX 4 MG GUM BUC PRN ×6 (05:47→22:12)
[2023-04-07] MEDS: PRENATAL VITAMINS W/ FOLIC ACID TABLET (FP) PO SCH (10:10)
[2023-04-07] MEDS: METHOCARBAMOL 500 MG TABLET PO PRN ×3 (10:10→22:09)
[2023-04-07] MEDS: IBUPROFEN 600 MG TABLET (FP) PO PRN ×2 (10:10→17:07)
[2023-04-07] MEDS: BACITRACIN 0.9 GM PACKET TP SCH ×2 (10:11→22:09)
[2023-04-07] MEDS: hydrOXYzine PAMOATE 25 MG CAPSULE (FP) PO PRN ×2 (13:36→22:09)
[2023-04-07] MEDS: LORazepam 1 MG TABLET PO PRN ×2 (13:36→19:55)
[2023-04-07] MEDS: MELATONIN 5 MG TABLETS PO SCH (22:09)
[2023-04-07] MEDS: THIAMINE HCL 100 MG TABLET (FP) PO SCH (22:09)
[2023-04-08] MEDS: methaDONE 40 MG, methaDONE 30 MG PO SCH (05:15)
[2023-04-08] MEDS: GABAPENTIN 100 MG CAPSULE PO SCH ×3 (05:16→22:07)
[2023-04-08] MEDS: LORazepam 0.5 MG TABLET PO SCH ×4 (05:16→22:19)
[2023-04-08] MEDS: NICOTINE POLACRILEX 4 MG GUM BUC PRN ×5 (05:21→17:42)
[2023-04-08] MEDS ORDERED: cloNIDine HCL 0.1 MG TABLET PO ONE (07:10)
[2023-04-08] MEDS: METHOCARBAMOL 500 MG TABLET PO PRN ×2 (08:40→17:41)
[2023-04-08] MEDS: hydrOXYzine PAMOATE 25 MG CAPSULE (FP) PO PRN ×2 (08:40→17:40)
[2023-04-08] MEDS: PRENATAL VITAMINS W/ FOLIC ACID TABLET (FP) PO SCH (10:09)
[2023-04-08] MEDS: BACITRACIN 0.9 GM PACKET TP SCH ×2 (10:10→22:06)
[2023-04-08] MEDS: LORazepam 0.5 MG TABLET PO PRN ×2 (13:14)
[2023-04-08] MEDS: MELATONIN 5 MG TABLETS PO SCH (22:06)
[2023-04-08] MEDS: THIAMINE HCL 100 MG TABLET (FP) PO SCH (22:07)
[2023-04-08] MEDS: IBUPROFEN 600 MG TABLET (FP) PO PRN (22:08)
[2023-04-09] MEDS ORDERED: LORazepam 0.5 MG TABLET PO ONE (05:00)
[2023-04-09] MEDS: methaDONE 40 MG, methaDONE 30 MG PO SCH (05:57)
[2023-04-09] MEDS: hydrOXYzine PAMOATE 25 MG CAPSULE (FP) PO PRN (05:57)
[2023-04-09] MEDS: GABAPENTIN 100 MG CAPSULE PO SCH (05:58)
[2023-04-09] MEDS: IBUPROFEN 600 MG TABLET (FP) PO PRN (05:59)
[2023-04-09] MEDS: METHOCARBAMOL 500 MG TABLET PO PRN (05:59)
[2023-04-09 09:06] VITALS: BP 145/90; PULSE 101; RESP 20; TEMP 97.3
[2023-04-09] MEDS: BACITRACIN 0.9 GM PACKET TP SCH (09:45)
[2023-04-09] MEDS: PRENATAL VITAMINS W/ FOLIC ACID TABLET (FP) PO SCH (09:45)
== END 2023-04-09 09:54 | disposition home or self-care (01) | DRG 773 ==
LOC: YASAS 11:43 → Y3N 13:18
PROVIDERS: ADMIT Allergy & Immunology; ATTEND Allergy & Immunology
PROC: HZ2ZZZZ Detoxification Services for Substance Abuse Treatment (ICD-10-PCS; principal; 2023-04-05)
DX: F10.230 Alcohol dependence with withdrawal, uncomplicated (principal); F11.20 Opioid dependence, uncomplicated; F14.20 Cocaine dependence, uncomplicated; F12.20 Cannabis dependence, uncomplicated; F17.210 Nicotine dependence, cigarettes, uncomplicated; F19.24 Other psychoactive substance dependence with psychoactive substance-induced mood disorder; G47.00 Insomnia, unspecified; M51.17 Intervertebral disc disorders with radiculopathy, lumbosacral region; Z86.59 Personal history of other mental and behavioral disorders; Z86.19 Personal history of other infectious and parasitic diseases; Z59.00 Homelessness unspecified; Z88.0 Allergy status to penicillin
CPT/HCPCS: 36415; 80053; 80307; 85027; 86780; 87635; 87811; 93005; 93010

== ENCOUNTER 2023-07-02 11:00 | Inpatient (IN) | payer OTHER ==
[2023-07-02 12:00] VITALS: BMI 33.2
[2023-07-02] MEDS ORDERED: DICYCLOMINE HCL 10 MG CAPSULE PO PRN (12:49)
[2023-07-02] MEDS ORDERED: BENZOCAINE/MENTHOL (CHLORASEPTIC ) LOZENGE MM PRN (12:49)
[2023-07-02] MEDS ORDERED: BENZONATATE 200 MG CAPSULE PO PRN (12:49)
[2023-07-02] MEDS ORDERED: ONDANSETRON *ODT* 4 MG TABLET SL PRN (12:49)
[2023-07-02] MEDS ORDERED: MAGNESIUM HYDROX 2400MG/30ML ORAL SUSPENSION 30 ML CUP PO PRN (12:49)
[2023-07-02] MEDS ORDERED: NALOXONE HCL (KLOXXADO) 8 MG SPRAY NS PRN (12:49)
[2023-07-02] MEDS ORDERED: NALOXONE HCL 0.4 MG/ML VIAL IM PRN (12:49)
[2023-07-02] MEDS ORDERED: MAG HYDROX/AL HYDROX/SIMETH 30 ML UNIT-DOSE CUP PO PRN (12:49)
[2023-07-02] MEDS ORDERED: LOPERAMIDE HCL 2 MG CAPSULE PO PRN (12:49)
[2023-07-02] MEDS ORDERED: guaiFENesin 600 MG TABLET.ER (FP) PO PRN (12:49)
[2023-07-02] MEDS ORDERED: BISMUTH SUBSALICYLATE 262 MG/15 ML BTL PO PRN (12:49)
[2023-07-02] MEDS ORDERED: POLYETHYLENE GLYCOL (HEALTHYLAX) 3350 17 GM PACKET PO PRN (12:49)
[2023-07-02] MEDS: PRENATAL VITAMINS W/ FOLIC ACID TABLET (FP) PO SCH (13:00)
[2023-07-02] MEDS: NICOTINE 21 MG/24 HOURS TOPICAL PATCH TD SCH (13:00)
[2023-07-02] MEDS ORDERED: NICOTINE 21 MG/24 HOURS TOPICAL PATCH TD PRN (16:09)
[2023-07-02] MEDS: hydrOXYzine PAMOATE 25 MG CAPSULE (FP) PO PRN (17:00)
[2023-07-02] MEDS: IBUPROFEN 400 MG TABLET (FP) PO PRN (17:00)
[2023-07-02] MEDS: methaDONE HCL 10 MG TABLET (FOR DETOX USE ONLY) PO ONE (19:43)
[2023-07-02] MEDS: diazePAM 5 MG TABLET PO ONE (19:45)
[2023-07-02] MEDS: NICOTINE POLACRILEX 2 MG GUM BUC PRN (19:47)
[2023-07-02] MEDS: THIAMINE 100 MG TABLET PO SCH (22:32)
[2023-07-02] MEDS: IBUPROFEN 600 MG TABLET (FP) PO PRN (22:35)
[2023-07-02] MEDS: diazePAM 5 MG TABLET PO SCH (22:35)
[2023-07-02] MEDS: MELATONIN 5 MG TABLETS PO SCH (22:36)
[2023-07-03] MEDS: METHOCARBAMOL 500 MG TABLET PO PRN (05:39)
[2023-07-03] MEDS: cloNIDine HCL 0.1 MG TABLET PO PRN (09:01)
[2023-07-03] MEDS: methaDONE HCL 10 MG TABLET PO ONE (10:06)
[2023-07-03] MEDS: BACITRACIN 0.9 GM PACKET TP SCH (10:06)
[2023-07-03] MEDS: PRENATAL VITAMINS W/ FOLIC ACID TABLET (FP) PO SCH (10:06)
[2023-07-03] MEDS: NICOTINE POLACRILEX 2 MG GUM BUC PRN (10:09)
[2023-07-03 11:55] LABS: HEMATOCRIT 37.8 % (35.4-49); HEMOGLOBIN 12.7 GM/dL (11.7-16.9); MCH 31.5 pg (25.7-33.7); MCHC 33.7 g/dl (32.0-35.9); MEAN CELL VOLUME 93.7 fl (80-96); PLATELET COUNT 307 10^3/uL (134-434); RBC 4.03 M/mm3 (4.00-5.60); WHITE BLOOD COUNT 5.8 K/mm3 (4.0-10.0)
[2023-07-03 12:00] LABS: CHLORIDE 105 mmol/L (98-107); POTASSIUM 4.4 mmol/L (3.5-5.1); SODIUM 139 mmol/L (136-145)
[2023-07-03 12:07] LABS: ALBUMIN 2.8 g/dl (3.4-5.0); ANION GAP 3 mmol/L (4-13); CO2 31 mmol/L (21-32); GLUCOSE,RANDOM 99 mg/dL (74-106)
[2023-07-03 12:10] LABS: CREATININE 0.7 mg/dL (0.55-1.3); SGOT/AST 49 U/L (15-37); SGPT/ALT 52 U/L (13-61)
[2023-07-03 12:12] LABS: BILIRUBIN,TOTAL 0.4 mg/dL (0.2-1); TOT PROT 6.1 g/dl (6.4-8.2)
[2023-07-03 12:13] LABS: ALK PHOS 133 U/L (45-117)
[2023-07-03] MEDS: GABAPENTIN 300 MG CAPSULE PO SCH (13:08)
[2023-07-03] MEDS: diazePAM 5 MG TABLET PO PRN (13:09)
[2023-07-04] MEDS: methaDONE HCL 40 MG DISPERSABLE TABLET PO ONE (05:27)
[2023-07-04] MEDS: diazePAM 5 MG TABLET PO SCH (05:28)
[2023-07-04] MEDS: ACETAMINOPHEN 325 MG TABLET (FP) PO PRN (09:29)
[2023-07-04] MEDS ORDERED: methaDONE HCL 10 MG TABLET (FOR DETOX USE ONLY) PO ONE (10:00)
[2023-07-05] MEDS: diazePAM 5 MG TABLET PO SCH (05:24)
[2023-07-05] MEDS: methaDONE 40 MG, methaDONE 10 MG PO ONE (05:24)
[2023-07-05] MEDS: GABAPENTIN 300 MG CAPSULE PO SCH (13:09)
[2023-07-05] MEDS: cloNIDine HCL 0.1 MG TABLET PO PRN (17:15)
[2023-07-05] MEDS: SUVOREXANT 10 MG TABLET PO PRN (22:10)
[2023-07-06] MEDS: methaDONE 40 MG, methaDONE 20 MG PO ONE (05:40)
[2023-07-06] MEDS: diazePAM 5 MG TABLET PO ONE ×3 (05:40→22:12)
[2023-07-06] MEDS ORDERED: methaDONE HCL 10 MG TABLET PO ONE (06:00)
[2023-07-06] MEDS ORDERED: methaDONE HCL 10 MG TABLET (FOR DETOX USE ONLY) PO ONE (10:00)
[2023-07-07] MEDS: methaDONE 40 MG, methaDONE 30 MG PO ONE (05:43)
[2023-07-07] MEDS ORDERED: methaDONE HCL 10 MG TABLET PO SCH (06:00)
[2023-07-07 06:24] VITALS: RESP 17
[2023-07-07 09:14] VITALS: BP 126/80; PULSE 79; TEMP 96.9
== END 2023-07-07 10:43 | disposition home or self-care (01) | DRG 773 ==
LOC: YASAS 11:00 → Y6N 15:28
PROVIDERS: ADMIT Allergy & Immunology; ATTEND Surgery
PROC: HZ2ZZZZ Detoxification Services for Substance Abuse Treatment (ICD-10-PCS; principal; 2023-07-02)
DX: F10.230 Alcohol dependence with withdrawal, uncomplicated (principal); F11.20 Opioid dependence, uncomplicated; F14.20 Cocaine dependence, uncomplicated; F17.213 Nicotine dependence, cigarettes, with withdrawal; F41.9 Anxiety disorder, unspecified; M51.17 Intervertebral disc disorders with radiculopathy, lumbosacral region; G89.29 Other chronic pain; Z62.810 Personal history of physical and sexual abuse in childhood; Z63.8 Other specified problems related to primary support group; Z86.19 Personal history of other infectious and parasitic diseases; Z88.0 Allergy status to penicillin
CPT/HCPCS: 36415; 80053; 80305; 80307; 85027; 86780; 93005; 93010

== ENCOUNTER 2023-10-14 08:47 | Inpatient (IN) | payer OTHER ==
[2023-10-14 09:51] VITALS: BMI 39.7
[2023-10-14] MEDS ORDERED: POLYETHYLENE GLYCOL (HEALTHYLAX) 3350 17 GM PACKET PO PRN (11:53)
[2023-10-14] MEDS ORDERED: ONDANSETRON *ODT* 4 MG TABLET SL PRN (11:53)
[2023-10-14] MEDS ORDERED: NALOXONE HCL 0.4 MG/ML VIAL IM PRN (11:53)
[2023-10-14] MEDS ORDERED: BENZONATATE 200 MG CAPSULE PO PRN (11:53)
[2023-10-14] MEDS ORDERED: LOPERAMIDE HCL 2 MG CAPSULE PO PRN (11:53)
[2023-10-14] MEDS ORDERED: DICYCLOMINE HCL 10 MG CAPSULE PO PRN (11:53)
[2023-10-14] MEDS ORDERED: guaiFENesin 600 MG TABLET.ER (FP) PO PRN (11:53)
[2023-10-14] MEDS ORDERED: ACETAMINOPHEN 325 MG TABLET (FP) PO PRN (11:53)
[2023-10-14] MEDS ORDERED: NALOXONE (NARCAN) HCL 4 MG/0.1 ML SPRAY NS PRN (11:53)
[2023-10-14] MEDS ORDERED: BENZOCAINE/MENTHOL (CHLORASEPTIC ) LOZENGE MM PRN (11:53)
[2023-10-14] MEDS ORDERED: MAGNESIUM HYDROX 2400MG/30ML ORAL SUSPENSION 30 ML CUP PO PRN (11:53)
[2023-10-14] MEDS: FUROSEMIDE 20 MG TABLET (FP) PO SCH (12:53)
[2023-10-14] MEDS: chlordiazePOXIDE HCL 25 MG CAPSULE PO PRN (12:56)
[2023-10-14] MEDS: NICOTINE POLACRILEX 4 MG GUM BUC PRN (12:57)
[2023-10-14] MEDS: methaDONE HCL 10 MG TABLET PO ONE (13:28)
[2023-10-14] MEDS: chlordiazePOXIDE HCL 25 MG CAPSULE PO SCH (17:30)
[2023-10-14] MEDS: IBUPROFEN 600 MG TABLET (FP) PO PRN (17:35)
[2023-10-14] MEDS ORDERED: MELATONIN 5 MG TABLETS PO SCH (22:00)
[2023-10-14] MEDS: busPIRone HCL 10 MG TABLET (FP) PO SCH (22:23)
[2023-10-14] MEDS: GABAPENTIN 300 MG CAPSULE PO SCH (22:23)
[2023-10-14] MEDS: THIAMINE 100 MG TABLET PO SCH (22:23)
[2023-10-14] MEDS: SUVOREXANT 10 MG TABLET PO PRN (22:24)
[2023-10-14] MEDS: METHOCARBAMOL 500 MG TABLET PO PRN (22:24)
[2023-10-15] MEDS ORDERED: methaDONE HCL 10 MG TABLET PO SCH (06:00)
[2023-10-15] MEDS ORDERED: levETIRAcetam 500 MG TABLET (FP) PO SCH (10:00)
[2023-10-15] MEDS: BUPRENORPHINE/NALOXONE 0.5 MG/0.125 MG FILM SL ONE ×2 (10:13→22:12)
[2023-10-15] MEDS: PRENATAL VITAMINS W/ FOLIC ACID TABLET (FP) PO SCH (10:13)
[2023-10-15] MEDS ORDERED: CYCLOBENZAPRINE HCL 10 MG TABLET (FP) PO PRN (11:14)
[2023-10-15 11:16] LABS: MCH 29.5 pg (25.7-33.7); MCHC 34.3 g/dl (32.0-35.9); MEAN CELL VOLUME 86.1 fl (80-96); MEAN PLT VOLUME 7.5 fl (7.5-11.1); PLATELET COUNT 225 10^3/uL (134-434); RBC 3.72 M/mm3 (4.00-5.60); RDW 13.7 % (11.9-15.9); WHITE BLOOD COUNT 4.2 K/mm3 (4.0-10.0)
[2023-10-15 11:20] LABS: CHLORIDE 108 mmol/L (98-107); POTASSIUM 4.2 mmol/L (3.5-5.1); SODIUM 139 mmol/L (136-145)
[2023-10-15 11:22] LABS: CALCIUM 8.8 mg/dL (8.5-10.1)
[2023-10-15 11:23] LABS: ANION GAP 5 mmol/L (4-13); BLOOD UREA NITROGEN 16.2 mg/dL (7-18); CO2 27 mmol/L (21-32); GLUCOSE,RANDOM 116 mg/dL (74-106)
[2023-10-15 11:26] LABS: CREATININE 0.9 mg/dL (0.55-1.3); SGOT/AST 52 U/L (15-37); SGPT/ALT 60 U/L (13-61)
[2023-10-15 11:28] LABS: BILIRUBIN,TOTAL 0.3 mg/dL (0.2-1); TOT PROT 5.8 g/dl (6.4-8.2)
[2023-10-15 11:29] LABS: ALK PHOS 91 U/L (45-117)
[2023-10-15] MEDS: cloNIDine HCL 0.1 MG TABLET PO PRN (11:30)
[2023-10-15] MEDS: hydrOXYzine PAMOATE 25 MG CAPSULE (FP) PO PRN (12:34)
[2023-10-15] MEDS: METHOCARBAMOL 500 MG TABLET PO PRN (12:36)
[2023-10-15] MEDS ORDERED: GABAPENTIN 300 MG CAPSULE PO SCH (14:00)
[2023-10-15] MEDS: IBUPROFEN 400 MG TABLET (FP) PO PRN (17:27)
[2023-10-16] MEDS: chlordiazePOXIDE HCL 25 MG CAPSULE PO SCH (05:33)
[2023-10-16] MEDS: BISMUTH SUBSALICYLATE 524 MG/30 ML PO PRN (08:03)
[2023-10-16] MEDS: BUPRENORPHINE/NALOXONE 0.5 MG/0.125 MG FILM SL SCH (10:37)
[2023-10-16] MEDS: MAG HYDROX/AL HYDROX/SIMETH 30 ML UNIT-DOSE CUP PO PRN (14:41)
[2023-10-16] MEDS: LACTULOSE 20 GM/30 ML UDC (FOR ORAL USE ONLY) PO SCH (18:00)
[2023-10-16] MEDS: SUVOREXANT 15 MG TABLET PO PRN (22:09)
[2023-10-17] MEDS ORDERED: chlordiazePOXIDE HCL 10 MG CAPSULE PO PRN
[2023-10-17] MEDS: chlordiazePOXIDE HCL 10 MG CAPSULE PO SCH (05:50)
[2023-10-17] MEDS ORDERED: BUPRENORPHINE/NALOXONE 2 MG/0.5 MG FILM PACKET SL SCH (10:00)
[2023-10-17] MEDS: methaDONE HCL 10 MG TABLET (FOR DETOX USE ONLY) PO ONE (10:34)
[2023-10-17] MEDS: methaDONE HCL 10 MG TABLET PO ONE ×2 (11:47→11:57)
[2023-10-17] MEDS: amLODIPine BESYLATE 2.5 MG TABLET (FP) PO SCH (12:27)
[2023-10-17] MEDS: CLOTRIMAZOLE 1% CREAM TP SCH (22:17)
[2023-10-17] MEDS: BACITRACIN 0.9 GM PACKET TP SCH (22:18)
[2023-10-18] MEDS: chlordiazePOXIDE HCL 10 MG CAPSULE PO SCH (05:37)
[2023-10-18] MEDS ORDERED: BUPRENORPHINE/NALOXONE 4 MG/1 MG FILM PACKET SL SCH (10:00)
[2023-10-18] MEDS: methaDONE HCL 40 MG DISPERSABLE TABLET PO ONE (10:17)
[2023-10-19] MEDS: chlordiazePOXIDE HCL 10 MG CAPSULE PO ONE (05:33)
[2023-10-19 09:19] VITALS: BP 125/72; PULSE 93; RESP 18; TEMP 96.9
[2023-10-19] MEDS: amLODIPine BESYLATE 5 MG TABLET (FP) PO SCH (09:21)
[2023-10-19] MEDS: methaDONE 40 MG, methaDONE 10 MG PO ONE (09:23)
[2023-10-19] MEDS ORDERED: methaDONE HCL 10 MG TABLET PO ONE (10:00)
[2023-10-19] MEDS ORDERED: methaDONE HCL 10 MG TABLET (FOR DETOX USE ONLY) PO ONE (10:00)
[2023-10-19] MEDS ORDERED: BUPRENORPHINE/NALOXONE 8 MG/2 MG FILM PACKET SL SCH (10:00)
[2023-10-20] MEDS ORDERED: methaDONE HCL 10 MG TABLET PO ONE (10:00)
[2023-10-20] MEDS ORDERED: methaDONE 40 MG, methaDONE 20 MG PO ONE (10:00)
[2023-10-20] MEDS ORDERED: BUPRENORPHINE/NALOXONE 8 MG/2 MG FILM PACKET SL SCH (10:00)
== END 2023-10-19 11:56 | disposition home or self-care (01) | DRG 773 ==
LOC: SUATTDRO 08:47 → YASAS 08:47 → Y6N 12:09
PROVIDERS: ADMIT Allergy & Immunology; ATTEND Surgery
PROC: HZ2ZZZZ Detoxification Services for Substance Abuse Treatment (ICD-10-PCS; principal; 2023-10-14)
DX: F11.23 Opioid dependence with withdrawal (principal); F10.230 Alcohol dependence with withdrawal, uncomplicated; F17.210 Nicotine dependence, cigarettes, uncomplicated; F41.9 Anxiety disorder, unspecified; F32.A Depression, unspecified; F19.982 Other psychoactive substance use, unspecified with psychoactive substance-induced sleep disorder; F19.980 Other psychoactive substance use, unspecified with psychoactive substance-induced anxiety disorder; E72.20 Disorder of urea cycle metabolism, unspecified; M54.30 Sciatica, unspecified side; M54.59 Other low back pain; G89.29 Other chronic pain; E86.0 Dehydration; Z62.810 Personal history of physical and sexual abuse in childhood; Z87.438 Personal history of other diseases of male genital organs; Z88.0 Allergy status to penicillin; Z86.19 Personal history of other infectious and parasitic diseases; Z56.0 Unemployment, unspecified; Z59.00 Homelessness unspecified
CPT/HCPCS: 36415; 80053; 80305; 80307; 82140; 85027; 86780; 93005; 93010

== ENCOUNTER 2024-07-31 16:42 | Inpatient (IN) | payer OTHER ==
[2024-07-31 17:41] VITALS: BMI 37.7
[2024-07-31] MEDS ORDERED: guaiFENesin 600 MG TABLET.ER (FP) PO PRN (18:02)
[2024-07-31] MEDS ORDERED: DICYCLOMINE HCL 10 MG CAPSULE PO PRN (18:02)
[2024-07-31] MEDS ORDERED: MAG HYDROX/AL HYDROX/SIMETH 30 ML UNIT-DOSE CUP PO PRN (18:02)
[2024-07-31] MEDS ORDERED: POLYETHYLENE GLYCOL (HEALTHYLAX) 3350 17 GM PACKET PO PRN (18:02)
[2024-07-31] MEDS ORDERED: BENZONATATE 200 MG CAPSULE PO PRN (18:02)
[2024-07-31] MEDS ORDERED: NICOTINE POLACRILEX 2 MG LOZENGE BC PRN (18:02)
[2024-07-31] MEDS ORDERED: BENZOCAINE/MENTHOL (CHLORASEPTIC ) LOZENGE MM PRN (18:02)
[2024-07-31] MEDS ORDERED: NALOXONE (NARCAN) HCL 4 MG/0.1 ML SPRAY NS PRN (18:02)
[2024-07-31] MEDS ORDERED: BISMUTH SUBSALICYLATE 524 MG/30 ML PO PRN (18:02)
[2024-07-31] MEDS ORDERED: IBUPROFEN 400 MG TABLET (FP) PO PRN (18:02)
[2024-07-31] MEDS ORDERED: LOPERAMIDE HCL 2 MG CAPSULE PO PRN (18:02)
[2024-07-31] MEDS: METHOCARBAMOL 500 MG TABLET PO PRN (20:08)
[2024-07-31] MEDS: NICOTINE POLACRILEX 2 MG GUM BUC PRN (20:08)
[2024-07-31] MEDS: MELATONIN 5 MG TABLETS PO SCH (22:03)
[2024-07-31] MEDS: THIAMINE 100 MG TABLET PO SCH (22:03)
[2024-08-01] MEDS: PRENATAL VITAMINS W/ FOLIC ACID TABLET (FP) PO SCH (09:22)
[2024-08-01] MEDS: methaDONE HCL 40 MG DISPERSABLE TABLET PO ONE (09:22)
[2024-08-01] MEDS: amLODIPine BESYLATE 5 MG TABLET (FP) PO SCH (09:22)
[2024-08-01] MEDS: diazePAM 5 MG TABLET PO SCH (11:01)
[2024-08-01 11:50] LABS: HEMATOCRIT 43.7 % (40.1-51.0); MEAN CELL VOLUME 89.9 fl (79.0-92.2); MEAN PLT VOLUME 10.1 fl (9.4-12.4); PLATELET COUNT 296 x10^3/uL (163-337); RDW 14.8 % (12.1-15.9)
[2024-08-01 12:07] LABS: CHLORIDE 109 mmol/L (98-107); POTASSIUM 4.4 mmol/L (3.5-5.1); SODIUM 142 mmol/L (136-145)
[2024-08-01 12:09] LABS: CALCIUM 9.4 mg/dL (8.5-10.1)
[2024-08-01 12:10] LABS: ALBUMIN 3.2 g/dl (3.4-5.0); ANION GAP 5 mmol/L (4-13); BLOOD UREA NITROGEN 13.6 mg/dL (7-18); CO2 28 mmol/L (21-32); GLUCOSE,RANDOM 147 mg/dL (74-106)
[2024-08-01 12:13] LABS: CREATININE 0.9 mg/dL (0.55-1.3); SGOT/AST 28 U/L (15-37); SGPT/ALT 30 U/L (13-61)
[2024-08-01 12:14] LABS: BILIRUBIN,TOTAL 0.4 mg/dL (0.2-1); TOT PROT 6.7 g/dl (6.4-8.2)
[2024-08-01 12:16] LABS: ALK PHOS 170 U/L (45-117)
[2024-08-01] MEDS: diazePAM 5 MG TABLET PO PRN (13:04)
[2024-08-01] MEDS: GABAPENTIN 100 MG CAPSULE PO SCH (22:32)
[2024-08-02] MEDS: methaDONE HCL 40 MG DISPERSABLE TABLET PO SCH (05:38)
[2024-08-02] MEDS: IBUPROFEN 600 MG TABLET (FP) PO PRN (12:58)
[2024-08-02] MEDS: NICOTINE POLACRILEX 4 MG GUM BUC PRN (15:17)
[2024-08-02] MEDS: ACETAMINOPHEN 325 MG TABLET (FP) PO PRN (17:12)
[2024-08-02] MEDS: METHOCARBAMOL 500 MG TABLET PO PRN (22:04)
[2024-08-03] MEDS: diazePAM 5 MG TABLET PO SCH (05:34)
[2024-08-03] MEDS: chlordiazePOXIDE HCL 25 MG CAPSULE PO SCH (10:55)
[2024-08-03] MEDS: hydrOXYzine PAMOATE 25 MG CAPSULE (FP) PO PRN (10:58)
[2024-08-03] MEDS: ONDANSETRON *ODT* 4 MG TABLET SL PRN (15:26)
[2024-08-04] MEDS: chlordiazePOXIDE HCL 25 MG CAPSULE PO PRN (00:52)
[2024-08-04] MEDS: chlordiazePOXIDE HCL 10 MG CAPSULE PO SCH (05:30)
[2024-08-04] MEDS ORDERED: diazePAM 5 MG TABLET PO SCH (06:00)
[2024-08-04] MEDS: SUVOREXANT 10 MG TABLET PO PRN (22:09)
[2024-08-04] MEDS: GABAPENTIN 300 MG CAPSULE PO SCH (22:10)
[2024-08-05] MEDS: chlordiazePOXIDE HCL 10 MG CAPSULE PO SCH (05:22)
[2024-08-05] MEDS ORDERED: diazePAM 5 MG TABLET PO ONE (06:00)
[2024-08-05] MEDS: NYSTATIN 100,000 UNIT/GM TOPICAL CREAM 15 GM TUBE TP SCH (10:57)
[2024-08-05] MEDS: VITAMINS A AND D TOPICAL OINTMENT TP SCH (11:05)
[2024-08-05] MEDS: chlordiazePOXIDE HCL 10 MG CAPSULE PO ONE (14:00)
[2024-08-05] MEDS: diazePAM 5 MG TABLET PO ONE (14:49)
[2024-08-06] MEDS ORDERED: chlordiazePOXIDE HCL 10 MG CAPSULE PO PRN
[2024-08-06] MEDS: chlordiazePOXIDE HCL 10 MG CAPSULE PO ONE (05:10)
[2024-08-06 11:14] VITALS: BP 127/87; PULSE 77; RESP 20; TEMP 98
[2024-08-06] MEDS: MAGNESIUM HYDROX 2400MG/30ML ORAL SUSPENSION 30 ML CUP PO PRN (13:30)
== END 2024-08-06 14:28 | disposition other institution (70) | DRG 773 ==
LOC: YASAS 16:42 → Y3N 19:14
PROVIDERS: ADMIT Allergy & Immunology; ATTEND Allergy & Immunology
PROC: HZ2ZZZZ Detoxification Services for Substance Abuse Treatment (ICD-10-PCS; principal; 2024-07-31)
DX: F10.230 Alcohol dependence with withdrawal, uncomplicated (principal); F11.20 Opioid dependence, uncomplicated; F14.20 Cocaine dependence, uncomplicated; F13.20 Sedative, hypnotic or anxiolytic dependence, uncomplicated; F17.210 Nicotine dependence, cigarettes, uncomplicated; F19.24 Other psychoactive substance dependence with psychoactive substance-induced mood disorder; F41.9 Anxiety disorder, unspecified; F32.A Depression, unspecified; I10 Essential (primary) hypertension; M54.50 Low back pain, unspecified; G89.29 Other chronic pain; Z86.59 Personal history of other mental and behavioral disorders; Z88.0 Allergy status to penicillin; Z59.00 Homelessness unspecified
CPT/HCPCS: 36415; 80053; 80305; 80307; 85027; 86780; 93005; 93010; Q0162

== ENCOUNTER 2024-08-06 14:18 | Inpatient (IN) | payer OTHER ==
[2024-08-06 14:42] VITALS: RESP 18
[2024-08-06] MEDS ORDERED: BENZOCAINE/MENTHOL (CHLORASEPTIC ) LOZENGE MM PRN (16:14)
[2024-08-06] MEDS ORDERED: IBUPROFEN 400 MG TABLET (FP) PO PRN (16:14)
[2024-08-06] MEDS ORDERED: NALOXONE (NARCAN) HCL 4 MG/0.1 ML SPRAY NS PRN (16:14)
[2024-08-06] MEDS ORDERED: ACETAMINOPHEN 325 MG TABLET (FP) PO PRN (16:14)
[2024-08-06] MEDS ORDERED: LOPERAMIDE HCL 2 MG CAPSULE PO PRN (16:14)
[2024-08-06] MEDS ORDERED: MAG HYDROX/AL HYDROX/SIMETH 30 ML UNIT-DOSE CUP PO PRN (16:14)
[2024-08-06] MEDS ORDERED: hydrOXYzine PAMOATE 25 MG CAPSULE (FP) PO PRN (16:14)
[2024-08-06] MEDS ORDERED: NALOXONE HCL 0.4 MG/ML VIAL IVPUSH PRN (16:14)
[2024-08-06] MEDS ORDERED: BENZONATATE 200 MG CAPSULE PO PRN (16:14)
[2024-08-06] MEDS ORDERED: MAGNESIUM HYDROX 2400MG/30ML ORAL SUSPENSION 30 ML CUP PO PRN (16:14)
[2024-08-06] MEDS ORDERED: IBUPROFEN 600 MG TABLET (FP) PO PRN (16:14)
[2024-08-06] MEDS ORDERED: guaiFENesin 600 MG TABLET.ER (FP) PO PRN (16:14)
[2024-08-06] MEDS ORDERED: NICOTINE 14 MG/24 HOURS TOPICAL PATCH TD PRN (16:14)
[2024-08-06] MEDS ORDERED: METHOCARBAMOL 500 MG TABLET PO PRN (16:14)
[2024-08-06] MEDS ORDERED: POLYETHYLENE GLYCOL (HEALTHYLAX) 3350 17 GM PACKET PO PRN (16:14)
[2024-08-06 16:17] VITALS: BP 142/84; PULSE 95; TEMP 98.3
[2024-08-06] MEDS ORDERED: NYSTATIN 100,000 UNIT/GM TOPICAL CREAM 15 GM TUBE TP SCH (22:00)
[2024-08-06] MEDS ORDERED: GABAPENTIN 300 MG CAPSULE PO SCH (22:00)
[2024-08-06] MEDS ORDERED: THIAMINE 100 MG TABLET PO SCH (22:00)
[2024-08-06] MEDS ORDERED: MELATONIN 5 MG TABLETS PO SCH (22:00)
[2024-08-07] MEDS ORDERED: methaDONE HCL 40 MG DISPERSABLE TABLET PO SCH (06:00)
[2024-08-07] MEDS ORDERED: amLODIPine BESYLATE 5 MG TABLET (FP) PO SCH (10:00)
[2024-08-07] MEDS ORDERED: PRENATAL VITAMINS W/ FOLIC ACID TABLET (FP) PO SCH (10:00)
== END 2024-08-06 16:37 | disposition home or self-care (01) | DRG 772 ==
LOC: YASAS 14:18 → Y3E 14:19
PROVIDERS: ADMIT Psychiatry & Neurology Pain Medicine; ATTEND Psychiatry & Neurology Pain Medicine
PROC: HZ42ZZZ Group Counseling for Substance Abuse Treatment, Cognitive-Behavioral (ICD-10-PCS; principal; 2024-08-06)
DX: F11.20 Opioid dependence, uncomplicated (principal); F10.20 Alcohol dependence, uncomplicated; F14.20 Cocaine dependence, uncomplicated; F12.20 Cannabis dependence, uncomplicated; F17.210 Nicotine dependence, cigarettes, uncomplicated; F41.9 Anxiety disorder, unspecified; F32.A Depression, unspecified; I10 Essential (primary) hypertension; M54.40 Lumbago with sciatica, unspecified side; G89.29 Other chronic pain; Z59.00 Homelessness unspecified